=== PATIENT | male | born 1970 | race Caucasian/White ===

== ENCOUNTER 2017-10-27 17:16 | Emergency (ER) | payer MEDICAID, SELFPAY ==
[2017-10-27 17:18] VITALS: BP 144/88; PULSE 95; RESP 18; TEMP 37.1; O2SAT 99; BMI 23.5
--- NOTE | 2017-10-27 17:20 | RAD_ITS ---
STUDY: X-RAY - LEFT HAND REASON FOR EXAM: Male, 47 years old. Smash injury to distal tips of the third and fourth digits. Trigger finger deformity of fifth digit. TECHNIQUE: Three view(s) of the hand. COMPARISON: None. FINDINGS: Bones: There are no acute osseous abnormalities. Joints: There is moderate arthrosis of the radial carpal row and the first carpometacarpal joint. There is a trigger finger deformity of the fifth digit. Soft tissues: There is soft tissue swelling over the distal tip of the third digit. Foreign body: None RAD/Hand Min 3 Views IMPRESSION: Soft tissue swelling. Osteoarthritic changes. No acute osseous abnormality. Electronically Signed: Antolin Cody MD at 17:36 EDT , Service support ,
--- NOTE | 2017-10-27 19:24 | ED.VISSUMM ---
- ER Visit Summary Date of Service: 10/27/17 Chief Complaint: Left hand trauma History of Present Illness: The patient is a 47 M who presents for injury to the left hand that occurred 4 hours ago. Patient tried to catch a falling log from a truck and ended up getting his left hand smashed underneath it. Tetanus is not up-to-date. Patient has chronic trigger fingers on the fourth and fifth fingers of both hands. He is right-handed. He is scheduled for tendon release surgery of both hands 3 days. Physical Examination: Is well-nourished well-developed sitting in bed in no distress. Patient has chronic contractures of the fourth and fifth fingers of the left and right hands. Avulsion of the finger pads on the third and fourth fingers of the left hand. Distal refill, motor and sensation are intact. Average currently controlled. Test Results: [] Emergency Department Course and Treatment: tetanus was updated. X-ray showed no fractures. Patient's third and fourth fingers were digitally blocked with lidocaine. The skin avulsions were cleaned, debrided including dried paper towel and blood clot were removed, and it was noted that the fourth finger had a small laceration with oozing hemorrhage. 1x 6-0 simple interrupted suture was placed to close the oozing laceration and control hemorrhage. The third finger had significant avulsion of the finger pad, with large amount of tissue missing. The remaining finger pad was cleaned, debrided and packed into place with 2 simple interrupted sutures. Hemorrhage control was obtained with minimal pressure. Bacitracin was placed on patient's wounds and bulky sterile dressings were placed. Patient was placed on antibiotics given the dirty nature of the wounds. He is to follow-up with his hand surgeon in 3 days as already scheduled. Return precautions given. Given a prescription for Percocet for pain. He was discharged home. Treatment Plan: [] Disposition: [] Impression: Crush injury and lacerations/avulsions to the third and fourth palmar fingertips, left hand This note was generated with [employer] dictation software. It may contain incorrect words, spelling, and punctuation that were not noted in review of the chart prior to signing ED Disposition - Plan for ED Patient: Disposition: Home or Assisted Living Chief Complaint: Upper Extremity Injury Instructions: ED Crush Injury Finger No Fx, ED Laceration Hand Prescriptions: Oxycodone HCl/Acetaminophen [Percocet 5/325] 1 tab PO Q6H PRN PRN 3 Days #12 tab PRN Reason: Pain Cephalexin [Keflex] 500 mg PO Q6 #20 cap Bacitracin Ointment 1 applic TOPICAL BID #1 tube Referrals: Nemesio Johnson MD [STAFF PHYSICIAN] - Keep [facility] appointment Care Physician,No Primary [Primary Care Provider] - Additional Instructions: You have crush injuries to your third and fourth fingers of your left hand that required suturing. There were no obvious fractures, however given the damage to your fingertips, you have been placed on antibiotics to prevent infection. Please apply antibiotic ointment twice daily to the wounds as well. Keep your appointment with your orthopedic doctor in 3 days for reevaluation. You will need to have the sutures removed, with 1 suture in your fourth finger and 2 sutures in your third finger. Have any concern about your condition, such as high fever, pus from the wounds, red streaking or severe pain, or any other concerns, please come back to emergency department for another evaluation.
[2017-10-27] MEDS: Diphth,Pertuss(Acell),Tet Vac 0.5 ML Vial IM (19:45)
[2017-10-27] MEDS: Acetaminophen 500 MG Tablet PO (19:46)
[2017-10-27] MEDS: oxyCODONE 5 MG Tablet PO ×2 (19:46→21:35)
--- NOTE | 2017-10-27 21:15 | ED.DEP ---
ED Disposition - Plan for ED Patient: Disposition: Home or Assisted Living Chief Complaint: Upper Extremity Injury Instructions: ED Laceration Hand, ED Crush Injury Finger No Fx Prescriptions: Oxycodone HCl/Acetaminophen [Percocet 5/325] 1 tab PO Q6H PRN PRN 3 Days #12 tab PRN Reason: Pain Cephalexin [Keflex] 500 mg PO Q6 #20 cap Bacitracin Ointment 1 applic TOPICAL BID #1 tube Referrals: Care Physician,No Primary [Primary Care Provider] - Nemesio Johnson MD [STAFF PHYSICIAN] - Keep Chilo appointment Additional Instructions: You have crush injuries to your third and fourth fingers of your left hand that required suturing. There were no obvious fractures, however given the damage to your fingertips, you have been placed on antibiotics to prevent infection. Please apply antibiotic ointment twice daily to the wounds as well. Keep your appointment with your orthopedic doctor in 3 days for reevaluation. You will need to have the sutures removed, with 1 suture in your fourth finger and 2 sutures in your third finger. Have any concern about your condition, such as high fever, pus from the wounds, red streaking or severe pain, or any other concerns, please come back to emergency department for another evaluation.
[2017-10-27] MEDS: Cephalexin 250 MG Capsule 500 MG PO (21:35)
[2017-10-27 21:39] VITALS: PULSE 78; PULSE 87; RESP 18; O2SAT 100
== END 2017-10-27 21:40 | disposition home or self-care (01) ==
PROVIDERS: Emergency Provider Emergency Medicine
DX: S61.223A Laceration with foreign body of left middle finger without damage to nail, initial encounter (principal); S61.225A Laceration with foreign body of left ring finger without damage to nail, initial encounter; W20.8XXA Other cause of strike by thrown, projected or falling object, initial encounter; Y93.89 Activity, other specified; Y92.9 Unspecified place or not applicable; M65.342 Trigger finger, left ring finger; M65.341 Trigger finger, right ring finger; M65.352 Trigger finger, left little finger; M65.351 Trigger finger, right little finger
CPT/HCPCS: 12001; 73130; 90715; 99284

== ENCOUNTER 2017-12-22 16:00 | Outpatient (RCR) | payer MEDICAID, SELFPAY ==
--- NOTE | 2017-12-15 16:37 | HP.OTEVAL_ITS ---
Patient's Visit Information TUSHAR ESTEBAN is a 47 year old M, referred to Occupational Therapy by SANJANA NASSAR, with a diagnosis of dupuytren's contracture. Date of Evaluation: 12/15/17 Occupational Therapist: Callie Neely, MELODYR/Kimberli, CHT - Subjective Subjective: Pt arrives to OT for custom orthosis following a right palmar fasciectomy right middle and rign finger 12-04-17. pt states he has been having difficulty with his fingers pulling down for over 10 years. pt states he has trouble getting his hands in his pockets and getting his fingers caught on objects. pt is hopeful sx will allow his fingers to be straight so he can use his pockets and hold or release objects when needed. - Pain right hand 8 - ROM MP: right RF -5/40 right LF +30/15 PIP: right LF -25/35 DIP: right LF -25/30 ROM Comments: pts left hand demo with contracture of LF/RF and thumb and will have sx when his right hand is healed. - Strength Strength Comments: Not tested - Sensation Sensation Comments: denies - Hand/Wrist Evaluation Total Score of Pain & Functional Sections: 89 - Goals Goal:: pt will demo understanding of orthosis use and precautions by end of 1st session. pt will demo understanding to return to clinic for orthosis adj. to increase compliance with protocol. PT will demo understanding of signs of infection by end of 1st session. - Rehabilitation General Assessment: Contracture of palmar fascia- pt S/P palmar fasciectomy right middle and ring fingers 12/04/17. PT attends session for custom orthosis placing fingers together and at 0* extension. Therapist karol. custom orthosis- was unable to get LF PIP in 0* extension. able to get MCP of IF,MF, RF to 0* if ext LF MCP falls into +35 placeing PIP at 25* of flex. Due to pts pain level - therapist will have pt return to cont. to increase pts LF extension to 0 as able with graft. Pt agreeable to this POC- Rehabilitation Potential: Good - Anticipated Interventions Anticipated Interventions: Orthoses, Manual Lymph Drainage, Home Program Other Interventions: education on infection - Visit Plan Frequency: 1x/Week Duration: 4 Weeks General Plan: pt in need of custom orthosis placing right hand based fingers together and at 0 extension- following a right plamar fasciectomy. pt was instructed in orthosis use and precautions- pt also ed. on incision care and sighs of infection. TEXT: Thank you for the opportunity to evaluate your patient. For Medicare and Medicare HMO plans, please review the plan of care and approve it. It will need to be FAXED BACK to us at [phone] for Medicare purposes. Please let me know if there are questions or concerns regarding this plan of care. Physician Signature: Date:
--- NOTE | 2018-04-08 16:00 | HP.OT.NRP ---
HP - Discharge Summary - Patient Information TUSHAR ESTEBAN was seen in my office for initial evaluation on 12/15/17. The following Plan of Care was established for this patient: Initial Frequency: 1x/Week Initial Duration: 4 Weeks - Anticipated Interventions Anticipated Interventions: Orthoses, Manual Lymph Drainage, Home Program Other Interventions: education on infection This patient was last seen in our office 12/22/17. Pertinent comments regarding their Occupational therapy will appear below: PT has not returned following EVAL and due to timelapse in care pt is D/C at this time. At this point I will be discontinuing this patient from occupational therapy. I would be happy to see this patient again in the future if found appropriate by the physician. Thank you! Callie Neely, OTR/L, CHT
== END 2017-12-22 19:00 | disposition home or self-care (01) ==
LOC: OT 16:00
DX: M72.0 Palmar fascial fibromatosis [Dupuytren] (principal)
CPT/HCPCS: 97166; 97760

== ENCOUNTER 2018-02-24 09:00 | Outpatient (RCR) | payer MEDICAID, SELFPAY ==
--- NOTE | 2018-02-17 07:59 | HP.OTEVAL ---
Patient's Visit Information TUSHAR ESTEBAN is a 48 year old M, referred to Occupational Therapy by SANJANA NASSAR, with a diagnosis of Dupuytren's. Date of Evaluation: 02/16/18 Occupational Therapist: Callie Neely, MELODYR/L, CHT - Subjective Subjective: Pt underwent a dupuytren's contracture palmar fascia release January 27, 2018. pt had contracture for 10+ years and he was unable to put gloves on or put his hands in his pocket- pt opted for sx. he's currently happy with results. - Pain left hand 3 Pain Intensity Range: 0, 3 - Objective Objective/Observation: pt demo with open dupuytren's release- wound looks good- minimal drainage- - ROM ROM Comments: left MCP LF -10/20. left MCP RF -10/35 - Strength Strength Comments: NT - Edema PIP: right RF 6.5 left 7.5 - Goals Goal:: pt will demo incrase in left LF PIP ROM to -5/90 to gain ind. with perfroming BADLS and IADLS by d/c Goal:: pt will demo understanding of scar mtg by end of 2nd session to avoid scar adhesions. Goal:: pt will demo ind. donning/doffing of custom orthosis by end of 1st session. pt will demo understanding of orthosis use, care and skin precautions by end of 1st session. - Rehabilitation General Assessment: S/P left dupuytren's contracture open procedure- pt ed. in signs and symptoms of infection wound cleaning. pt was fabricated a custom paddle orthosis to keep palm of hand open- therapist was unable to get full ext. of left LF- pt is to return for weekly cleaning and orthosis adj. to ensure healing and decrease scar adhesions to return pt to PLOF. Rehabilitation Potential: Good - Anticipated Interventions Anticipated Interventions: A/AAROM/PROM, Scar Care, Wound Care, Modalities, Orthoses, Fine Motor Coord/Neo - Visit Plan Frequency: 1x/Week Duration: 4 Weeks TEXT: Thank you for the opportunity to evaluate your patient. For Medicare and Medicare HMO plans, please review the plan of care and approve it. It will need to be FAXED BACK to us at [phone] for Medicare purposes. Please let me know if there are questions or concerns regarding this plan of care. Physician Signature: Date:
--- NOTE | 2018-04-07 13:24 | HP.OT.NRP ---
HP - Discharge Summary - Patient Information TUSHAR ESTEBAN was seen in my office for initial evaluation on 02/16/18. The following Plan of Care was established for this patient: Initial Frequency: 1x/Week Initial Duration: 4 Weeks Plan: cont with POC- closer of wound. orthosis checks. ROM - Anticipated Interventions Anticipated Interventions: A/AAROM/PROM, Scar Care, Wound Care, Modalities, Orthoses, Fine Motor Coord/Neo This patient was last seen in our office 02/24/18. Pertinent comments regarding their Occupational therapy will appear below: Pt was seen for two OT visits. pt has not scheduled any further apts at this time. Due to timelapse from therapy pt is D/c at this time. At this point I will be discontinuing this patient from occupational therapy. I would be happy to see this patient again in the future if found appropriate by the physician. Thank you! Callie Neely, OTR/L, CHT
== END 2018-02-24 19:00 | disposition home or self-care (01) ==
LOC: OT 09:00
DX: M72.0 Palmar fascial fibromatosis [Dupuytren] (principal)
CPT/HCPCS: 97166; 97530; 97760

== ENCOUNTER → 2022-09-19 | Outpatient (CLI) | payer MEDICAID, SELFPAY ==
--- NOTE | 2022-09-19 06:36 | MRI_ITS ---
INDICATION: lower back pain EXAMINATION: MRI - MR Spine Lumbar W/O Contrast TECHNIQUE: Multiplanar and multisequence MR images of the lumbar spine. IV Contrast Dosage and Agent: None. COMPARISON: Lumbar spine radiographs same date. FINDINGS: Heterogenous marrow signal on T1 and T2. No focal lesions are evident. Homogenous low signal on STIR. No fracture. Alignment similar to prior with mild right scoliosis centered at L3. Sagittal alignment remains anatomic. The conus terminates at the level of the mid T12 vertebral body with normal contour and signal. Normal arborization of the cauda equina. At L1-2, mild facet degeneration causes no significant narrowing. At L2-3, mild right and moderate left facet degeneration with small left facet joint effusion causes only mild narrowing. At L3-4, disc bulge with diffuse disc bulge and moderate bilateral facet degeneration causes only mild narrowing. At L4-5, diffuse disc bulge and moderate to severe facet degeneration causes only mild narrowing. Disc abuts but does not displace the traversing left L5 nerve root in the subarticular zone, and both exiting L4 nerve roots in the foramina. At L5-S1, marked bilateral facet degeneration and small disc bulge with underlying vertebral body osteophytes cause only mild narrowing of the spinal canal and foramina. The paraspinal soft tissues are unremarkable. MRI/Spine Lumbar (Routine) IMPRESSION: Mild right scoliosis with multilevel degenerative changes but no evidence of nerve root impingement. This is most prominent in the L4-5 and L5-S1 facets which could cause facet type pain. Heterogenous marrow signal. This most likely represents red marrow reconversion or bony demineralization or other benign etiology but warrants more definitive workup; while less likely, an early infiltrative marrow disorder could appear this way. Suggest hematology workup such as CBC, serum electrophoresis etc. Electronically Signed: Yuniel Pretty MD at 8:03 EST Reading Location ID and State: [address] [place] [address] Tel , Service support ,
== END | disposition home or self-care (01) ==
LOC: MRI 06:35
PROVIDERS: Referring Provider Orthopaedic Surgery; Visit Provider Orthopaedic Surgery
DX: M54.50 Low back pain, unspecified (principal)
CPT/HCPCS: 72148

== ENCOUNTER → 2022-10-02 | Outpatient (CLI) | payer MEDICAID, SELFPAY ==
--- NOTE | 2022-10-02 07:00 | MRI_ITS ---
STUDY: MRI LEFT KNEE REASON FOR EXAM: Male, 52 years old. Pain. Evaluate for meniscal tear. TECHNIQUE: Standardized fat and water weighted pulse sequences were obtained in all 3 orthogonal planes. COMPARISON: Left knee images dated August 08, 2022. FINDINGS: Loss of substance of the body and posterior horn of the medial meniscus with a complex tear of the remnant of the posterior horn (coronal series 8 images 14-23). Some of these findings may be secondary to prior arthroscopy. Marked thinning of the articular cartilage of the medial femorotibial compartment with reactive subchondral bone marrow edema and osteophytes (coronal series 8 images 11-22). Normal medial collateral ligamentous complex (MCL). Normal distal semimembranosus, gracilis and semitendinosus tendons. Normal lateral meniscus. Mild thinning of the articular cartilage of the lateral femorotibial compartment (coronal series 8 images 13-21). Normal lateral femoral condyle and tibial plateau. Normal proximal tibiofibular articulation. Normal lateral collateral (fibular) ligament. Normal popliteus tendon. Normal biceps femoris tendon. Normal anterior cruciate ligament (ACL). Normal posterior cruciate ligament (PCL). Lateral tilt and subluxation of the patella with moderate to marked thinning of the articular cartilage of the patellofemoral compartment (axial series 5 images 17-24). Normal medial and lateral patellar retinaculum. Normal quadriceps tendon. Normal patellar tendon. Fibrosis of Hoffa''s fat pad from prior arthroscopic intervention (sagittal series 6 images 20-24). Deep infrapatellar bursitis (sagittal series 4 image 10). Moderate-sized joint effusion with multiple small plicae and small popliteal cyst (axial series 5 images 11-27). The soft tissues are unremarkable. The otherwise visualized osseous structures are unremarkable. MRI/Lower Ext Joint Only (Routine) IMPRESSION: Loss of substance of the body and posterior horn of the medial meniscus with a complex tear of the posterior horn remnant. Findings most likely secondary to arthroscopy. Marked thinning of the articular cartilage of the medial femorotibial compartment. Mild thinning of the articular cartilage of the lateral femorotibial compartment. Lateral tilt and subluxation of the patella with moderate to marked thinning of the articular cartilage of the patellofemoral compartment. Fibrosis of Hoffa''s fat pad. Deep infrapatellar bursitis. Moderate-sized joint effusion with multiple small plicae. Small popliteal cyst. Electronically Signed: Antolin Cody, at 13:01 EST ,
== END | disposition home or self-care (01) ==
LOC: MRI 10-03 10:54
PROVIDERS: Referring Provider Orthopaedic Surgery Sports Medicine; Visit Provider Orthopaedic Surgery Sports Medicine
DX: M17.12 Unilateral primary osteoarthritis, left knee (principal); M25.562 Pain in left knee; M25.462 Effusion, left knee
CPT/HCPCS: 73721

== ENCOUNTER 2024-05-02 19:49 | Inpatient (IN) | payer MEDICARE, MEDICAID, SELFPAY ==
[2024-05-02] VITALS (22 sets, daily range): BP systolic 114–152; BP diastolic 87–107; PULSE 77–93; RESP 14–26; TEMP 36.1–37.1; O2SAT 96–100; BMI 28.5; BMI 28.6
--- NOTE | 2024-05-02 19:54 | EKG12_ITS ---
Test Reason : DYSRHYTHMIA Blood Pressure : / mmHG Vent. Rate : 103 BPM Atrial Rate : 103 BPM P-R Int : 168 ms QRS Dur : 080 ms QT Int : 348 ms P-R-T Axes : 069 -03 051 degrees QTc Int : 455 ms Sinus tachycardia WITH PACS BORDERLINE Confirmed by Andres Ivory ([id number]), industrial editor ABIEL LUCIANO ([id number]) on 05/04/2024 9:31:58 AM Referred By: Confirmed By:Andres Ivory
--- NOTE | 2024-05-02 19:55 | CT_ITS ---
We are attempting to reach an attending provider to discuss findings. An addendum with communication details will be sent when the communication is complete. EXAM: CT ANGIOGRAPHY HEAD AND NECK WITH INTRAVENOUS CONTRAST CLINICAL INDICATION: Neuro deficit, acute, stroke suspected TECHNIQUE: [place] [facility] [place]/head and neck CT angiography protocol performed with intravenous contrast. This CT exam was performed using one or more of the following dose reduction techniques: automated exposure control, adjustment of the mA and/or kV according to patient size, and/or use of iterative reconstruction technique. MIP reconstructed images were created and reviewed. CONTRAST: IV 100mL [id number] COMPARISON: Noncontrast CT head on the same date. FINDINGS: HEAD: RIGHT ANTERIOR CEREBRAL ARTERY: No significant abnormality. No occlusion or significant stenosis. Anterior communicating artery is present. No aneurysm. RIGHT MIDDLE CEREBRAL ARTERY: No significant abnormality. No occlusion or significant stenosis. No aneurysm. RIGHT POSTERIOR CEREBRAL ARTERY: No significant abnormality. No occlusion or significant stenosis. No aneurysm. RIGHT INTRACRANIAL INTERNAL CAROTID ARTERY: No significant abnormality. No significant stenosis. No dissection or occlusion. RIGHT INTRACRANIAL VERTEBRAL ARTERY: No significant abnormality. No significant stenosis. No dissection or occlusion. LEFT ANTERIOR CEREBRAL ARTERY: No significant abnormality. No occlusion or significant stenosis. No aneurysm. LEFT MIDDLE CEREBRAL ARTERY: No significant abnormality. No occlusion or significant stenosis. No aneurysm. LEFT POSTERIOR CEREBRAL ARTERY: No significant abnormality. No occlusion or significant stenosis. No aneurysm. LEFT INTRACRANIAL INTERNAL CAROTID ARTERY: No significant abnormality. No significant stenosis. No dissection or occlusion. LEFT INTRACRANIAL VERTEBRAL ARTERY: No significant abnormality. No significant stenosis. No dissection or occlusion. BASILAR ARTERY: No significant abnormality. No occlusion or significant stenosis. No aneurysm. OTHER VASCULATURE: No vascular malformation. NECK: RIGHT COMMON CAROTID ARTERY: No significant abnormality. No significant stenosis. No dissection or occlusion. RIGHT EXTRACRANIAL INTERNAL CAROTID ARTERY: No significant abnormality. No significant stenosis. No dissection or occlusion. RIGHT EXTERNAL CAROTID ARTERY: No significant abnormality. No occlusion. RIGHT EXTRACRANIAL VERTEBRAL ARTERY: No significant abnormality. No significant stenosis. No dissection or occlusion. LEFT COMMON CAROTID ARTERY: No significant abnormality. No significant stenosis. No dissection or occlusion. LEFT EXTRACRANIAL INTERNAL CAROTID ARTERY: No significant abnormality. No significant stenosis. No dissection or occlusion. LEFT EXTERNAL CAROTID ARTERY: No significant abnormality. No occlusion. LEFT EXTRACRANIAL VERTEBRAL ARTERY: No significant abnormality. No significant stenosis. No dissection or occlusion. BRACHIOCEPHALIC AND SUBCLAVIAN ARTERIES: Normal as visualized. No occlusion or significant stenosis. LUNG APICES: Normal as visualized. HEAD and NECK: BONES/JOINTS: No significant abnormality. No discrete lytic or blastic abnormalities. SOFT TISSUES: No significant abnormality. CAROTID STENOSIS REFERENCE USING NASCET CRITERIA: % ICA stenosis = (1 - narrowest ICA diameter/diameter of distal cervical ICA) x 100. Mild - <50% stenosis. Moderate - 50-69% stenosis. Severe - 70-94% stenosis. Near occlusion - 95-99% stenosis. Occluded - 100% stenosis. CT/STROKE CTA Head AND Neck W/Con IMPRESSION: Negative CTA carotid and CTA brain. Electronically Signed: Tarik Aviles DO at 20:27 EDT ,
--- NOTE | 2024-05-02 20:02 | CT_ITS ---
EXAM: CT HEAD WITHOUT INTRAVENOUS CONTRAST CLINICAL INDICATION: NEURO DEFICIT TECHNIQUE: Multiple axial images were obtained of the head without intravenous contrast. This CT exam was performed using one or more of the following dose reduction techniques: automated exposure control, adjustment of the mA and/or kV according to patient size, and/or use of iterative reconstruction technique. COMPARISON: 03/21/2011 FINDINGS: BRAIN AND EXTRA-AXIAL SPACES: No significant abnormality. No intra- or extra-axial hemorrhage. No evidence of acute infarct. No intracranial mass or mass effect. There is preservation of the ortiz/white matter interface. Ventricles are appropriate for age. Basal cisterns are patent. BONES/JOINTS: No significant abnormality. No discrete lytic or blastic abnormalities. SINUSES: No significant findings. MASTOID AIR CELLS: No significant effusion. ORBITS: No acute findings. CT/STROKE Brain/Head without Cont IMPRESSION: No evidence of acute intracranial pathology. Specifically, no infarct or hemorrhage. ASPECTS: 10. N.B. : The above Results were Read Back by Tarik Aviles DO to Salvatore Hamm MD, and understanding confirmed on 05/02/2024 20:15:32 (ET). Electronically Signed: Tarik Aviles DO at 20:14 EDT ,
[2024-05-02 20:05] LABS: Absolute Lymphocyte Count 1.05 X10^3/uL (0.83-4.51); Absolute Neutrophil Count 11.6 X10^3/uL (2.0-7.7); Basophil# 0.05 X10^3/uL; Basophil% 0.4 % (0-1); Eosinophil# 0.16 X10^3/uL; Eosinophils% 1.2 % (0-5); Hematocrit 37.3 % (40-54); Hemoglobin 12.4 g/dL (13.0-16.5); Lymphocyte # 1.05 X10^3/ul (0.83-4.51); Lymphocyte % 7.7 % (19-41); Mean Corp Hgb Conc 33.2 g/dL (32-36); Mean Corpuscular Hgb 31.7 pg (27.0-32.0); Mean Corpuscular Volume 95.4 fL (80-94); Mean Platelet Vol. 9.4 fl (6.2-12.0); Monocyte# 0.83 X10^3/uL; Monocyte% 6.1 % (0-10); NRBC Flagged by Analyzer 0 % (0-5); Neutrophil # 11.57 X10^3/uL (2.7-7.7); Neutrophil % 84.3 % (47-70); Platelet Count 196 K/mm3 (150-450); RBC Distribution Width CV 12.6 % (11.6-14.6); RBC Distribution Width SD 43.9 fl (35.1-43.9); Red Blood Count 3.91 M/mm3 (4.6-6.2); White Blood Count 13.7 K/mm3 (4.4-11.0)
[2024-05-02 20:17] LABS: International Normalized Ratio 1.2; Prothrombin Time (Protime)PT. 14.7 SECONDS (11.7-14.9)
[2024-05-02 20:18] LABS: Partial Thromboplast Time 25.5 Seconds (24.1-36.2)
--- NOTE | 2024-05-02 20:22 | ED.VIS.STROK ---
HPI History of Present Illness Chief Complaint: Stroke Alert Detail of Chief Complaint: Cannot see on the left side Informant: patient and EMS Onset/Context/Timing Onset: Today (Onset 1809 while driving.) Associated Symptoms Associated Symptoms: Negative for Headache, Nausea or Vomiting Narrative Narrative: Patient is a 54-year-old male. He has history of orthopedic issues. Apparently he was driving with his friend. To socket puller because he could not see at 1810. He then began to work under the car. There was a period where he was not speaking. EMS was contacted. Patient is able to speak. He cannot see anything on his left side. Prior similar symptoms: No Recent Illness/Hospitalization: No PFSH PFSH Medical History (Updated 05/02/24 @ 21:[address] Irina Couch MD) History of venous thromboembolism Tobacco use Osteoarthritis of left knee Radiculopathy due to disorder of intervertebral disc of lumbar spine Lower back pain Home Medications ?Medication ?Instructions ?Recorded ?Last Taken ?Type acetaminophen 650 mg 650 mg PO Q12H 08/08/22 Unknown History tablet,extended release (Tylenol 8 Hour) cholecalciferol (vitamin D3) 50 50 mcg PO DAILY 09/19/22 Unknown History mcg (2,000 unit) capsule apixaban 5 mg tablet (Eliquis) 5 mg PO BID PE 05/02/24 Unknown History Allergy/AdvReac Type Severity Reaction Status Date / Time No Known Allergies Allergy Verified 05/02/24 19:56 Family History (Updated 05/02/24 @ 21:[address] Irina Couch MD) Mother CVA (cerebral vascular accident) Father No problems noted. Surgical History History of knee surgery History of hernia surgery Social History (Updated 05/02/24 @ 21:[address] Irina Couch MD) household members: none Smoking Status: Current every day smoker tobacco type: cigarettes Smoking packs per day: 0.5 Smoking cigarettes per day: 10.0 alcohol intake: former details: Former EtOH abuse (> 20 beers daily), sober ~ 1 year. substance use type: marijuana ROS ROS ED Constitutional Constitutional ED: Denies sweats or weakness Eyes Eyes: Reports blurry vision bilateral and change in vision bilateral; Denies diplopia ENT ENT ED: Denies sore throat Cardiovascular Cardiovascular: Denies chest pain or palpitations Respiratory/Chest Respiratory/Chest: Denies cough, dyspnea or dyspnea on exertion Gastrointestinal Gastrointestinal: Denies abdominal pain, nausea or vomiting Genitourinary Genitourinary ED: Denies dysuria, hematuria or urinary frequency Musculoskeletal Musculoskeletal: Denies arthralgias, back pain, myalgias or neck pain Integumentary Denies rash Neurologic Neurologic: Denies headache(s), paresthesias or weakness Hematologic/Lymphatic Hematologic/Lymphatic: Denies easy bleeding or easy bruising EXAM Physical Exam Const Vital Signs: 05/02/24 19:54 05/02/24 19:54 05/02/24 19:54 Temperature 98.2 F Temperature Source Oral Pulse Rate 87 87 87 Respiratory Rate 17 16 16 Blood Pressure 145/107 H 145/107 H 145/107 H Blood Pressure Mean 119 119 119 Pulse Ox 99 99 99 Oxygen Delivery Method Room Air Room Air Room Air 05/02/24 20:00 05/02/24 20:15 05/02/24 20:25 Temperature Temperature Source Pulse Rate 85 81 Respiratory Rate 21 H 18 Blood Pressure 141/97 H 152/98 H Blood Pressure Mean 111 116 Pulse Ox 98 99 Oxygen Delivery Method Room Air Room Air Room Air 05/02/24 20:30 05/02/24 20:30 Temperature Temperature Source Pulse Rate 77 Respiratory Rate 17 Blood Pressure 141/99 H 143/97 H Blood Pressure Mean 112 Pulse Ox 99 Oxygen Delivery Method Room Air Positive well nourished and well developed General Appearance ED: well developed and NAD HEENT Reports moist mucous membranes atraumatic Eyes PERRL and EOMs intact bilaterally Eyes Narrative: Homonymous hemianopsia left General Eye ED: Yes scleral icterus; Negative for pale conjunctiva Neck no lymphadenopathy, supple and no JVD Neck Narrative: No carotid bruits. Trachea midline. No dysphonia Chest Wall inspection of chest normal and palpation of chest normal Resp normal respiratory effort and clear to auscultation bilaterally Cardio Rate: regular rate Rhythm: regular rhythm Heart Sounds: S1 normal and S2 normal GI normal to inspection, nondistended, normoactive bowel sounds, soft to palpation, non-tender and non-distended Back/Spine no CVA tenderness Extremity normal to inspection General Extremety ED: Negative for deformity or edema General Extremity: Negative for deformity or edema Neuro oriented x3, CN's II-XII intact bilaterally and no sensory deficits noted Huan Coma Scale: document GCS findings Spontaneous Obeys Commands Oriented 15 Speech: speech normal Motor Exam: strength 5/5 throughout Psych mental status grossly normal Skin no wounds Lesions: no lesions Rashes: no rashes NIHSS NIHSS Initial: 1a Level of Consciousness: 0 1b LOC Questions (Score 2 if aphasic/stupor): 0 1c LOC Commands (Only score 1st attempt): 0 2 Best Gaze (If aphasic, use reflexive mvmts.): 0 3 Visual: 2 4 Facial Palsy: 0 5 Motor Arm Right (UN = amputation/fusion): 0 5 Motor Arm Left: 0 6 Motor Leg Right: 0 6 Motor Leg Left: 0 7 Limb ataxia (Only + if out of proportion): 0 8 Sensory (Aphasia/stupor=0 or 1, coma=2): 0 9 Best Language: 0 10 Dysarthria (mute, coma=2, intubated=UN): 0 11 Extinction and Inattention (only scored if +): 0 Total Score: 2 MDM MDM MDM Narrative Medical decision making narrative: Patient has a left homonymous hemianopsia. Stroke team was called. Patient was taken to radiology suite. I received a call for radiologist the CT of the head without contrast reveals no abnormality. Spoke with the neurologist at [facility]. Will order tenecteplase. He is completing his eval. Lab Data Attestation: I reviewed the patient's lab results. Lab results narrative: CBC is remarkable for elevated white count at 13.7. Coags normal. Labs: Laboratory Results - last 24 hr 05/02/24 05/02/24 05/02/24 19:55 20:20 20:36 WBC 13.7 H RBC 3.91 L Hgb 12.4 L Hct 37.3 L MCV 95.4 H MCH 31.7 MCHC 33.2 RDW Std Deviation 43.9 RDW Coeff of Roxana 12.6 Plt Count 196 MPV 9.4 Immature Gran % (Auto) 0.300 Neut % (Auto) 84.3 H Lymph % (Auto) 7.7 L [place] % (Auto) 6.1 Eos % (Auto) 1.2 Baso % (Auto) 0.4 Absolute Neuts (auto) 11.6 H Absolute Lymphs (auto) 1.05 Nucleated RBC % 0 PT 14.7 INR 1.2 APTT 25.5 Sodium 139 Potassium 4.3 Chloride 111 H Carbon Dioxide 24.0 Anion Gap 4 L BUN 15 Creatinine 1.02 Estim Creat Clear Calc 83.11 Est GFR (MDRD) Af Amer 97 Est GFR (MDRD) Non-Af 80 BUN/Creatinine Ratio 14.7 Glucose 101 Calcium 8.7 Phosphorus 2.0 L Magnesium 2.0 Troponin I High Sens 1342 H* Urine Opiates Screen NEGATIVE Urine Methadone Screen NEGATIVE Ur Barbiturates Screen NEGATIVE Ur Phencyclidine Scrn NEGATIVE Ur Amphetamines Screen POSITIVE H MDMA (Ecstasy) Screen POSITIVE H U Benzodiazepines Scrn NEGATIVE Urine Cocaine Screen NEGATIVE U Cannabinoids Screen NEGATIVE Ur Drug Screen Comment POC Glucose 83 Troponin is elevated 1342. Patient denies chest pain or shortness of breath. Talk screen was ordered. Case was discussed with Dr. Couch. Patient be admitted to ICU. Radiography Diagnostic Testing: Clinical Impression(s) from Imaging Studies Head/Neck CTA 05/02/24 19:55 IMPRESSION: Negative CTA carotid and CTA brain. Electronically Signed: Tarik Aviles DO at 20:27 EDT , ADDENDUM: 05/02/242034 IMPRESSION: Negative CTA carotid and CTA brain. N.B. : The above Results were Read Back by Tarik Aviles DO to Salvatore Hamm MD, and understanding confirmed on 05/02/2024 20:28:06 (ET). Electronically Signed: Tarik Aviles DO at 20:27 EDT , Brain CT 05/02/24 20:02 IMPRESSION: No evidence of acute intracranial pathology. Specifically, no infarct or hemorrhage. ASPECTS: 10. N.B. : The above Results were Read Back by Tarik Aviles DO to Salvatore Hamm MD, and understanding confirmed on 05/02/2024 20:15:32 (ET). Electronically Signed: Tarik Aviles DO at 20:14 EDT , ADDENDUM: 05/02/242021 IMPRESSION: No evidence of acute intracranial pathology. Specifically, no infarct or hemorrhage. ASPECTS: 10. N.B. : The above Results were Read Back by Tarik Aviles DO to Salvatore Hamm MD, and understanding confirmed on 05/02/2024 20:15:32 (ET). Electronically Signed: Tarik Aviles DO at 20:14 EDT , I received a call from the radiologist. He sets the CTA is negative. 2027. EKG Initial EKG: Attestation: I personally reviewed and interpreted this EKG as follows: Interpretation: Sinus Tachycardia (Rate is 103. VA intervals 108 ms. Cures duration 80 ms. QT duration 3 and 48 ms. [place] is normal. Computer is reading possible inferior infarct. I am in disagreement.) Management Discussion w/another healthcare provider: Hospitalist, Manufacturer Representative ([facility] neurologist agrees with administration of tenecteplase) and Radiologist (Radiologist read regarding the read for the unenhanced scan of the head and the CTA of the head and neck) Treatment and Re-Evaluation Narrative: By the time the hospitalist saw patient his vision had returned to normal. Critical Care Time Critical Care Time: Yes Critical care time (excluding procedures): 30-74 minutes (32), Including time spent: (History, physical, documentation, discussion with radiologist, [facility] neurologist and pharmacist to expedite the mixing and delivery of tenecteplase discussion with sister who informed us that he did have a PE and has not taken anticoagulant for 2 to 3 months.), Discussing w/Patient &/or Family/Medical Aides Teacher, Discussing w/Consultants and Arranging Admission or Transfer Discharge Plan Dx/Rx/DC Orders Clinical Impression: Left homonymous hemianopsia, Elevated blood-pressure reading without diagnosis of hypertension Disposition Disposition: Acute Care Hospital [facility] Discharge Date/Time: 05/02/24 21:38
[2024-05-02] MEDS: TENECTEPLASE 2966.4 MG IV (20:30)
[2024-05-02] MEDS: 0.9% Saline Lock 10 ML Syringe IV ×2 (20:32→20:33)
[2024-05-02] MEDS: 0.9% Normal Saline (1000mL) 1,000 ML 100 ML IV (20:33)
[2024-05-02 20:40] LABS: Anion Gap 4 (5-15); BUN 15 mg/dL (7-18); BUN/Creat Ratio 14.7 RATIO (10-20); Calcium,Total 8.7 mg/dL (8.5-10.1); Chloride 111 mmol/L (98-107); Creatinine, Serum 1.02 mg/dL (0.70-1.30); EST Glomerular Filtration Rate 80 mL/min (>60); Est Glom Filt Rate - Afr Amer 97 mL/min (>60); Estimated Creatinine Clearance 83.11 ml/min; Glucose 101 mg/dL (74-106); Potassium 4.3 mmol/L (3.5-5.1); Sodium Level 139 mmol/L (136-145); Troponin-I HS 1342 pg/mL (3.0-78.0)
[2024-05-02 20:41] LABS: Bedside Glucose 83 mg/dL (74-106)
--- NOTE | 2024-05-02 20:41 | PCM.HP.STD ---
HPI - General General Date of Admission: 05/02/24 Date of Service: 05/02/24 Chief Complaint: Left sided vision loss, slurred speech, confusion. HPI Narrative The patient is a 54 y/o M w/ PMHx: Former EtOH abuse (~ 20 beers daily, sober x 1 year), Chronic cannabis use, Hx VTE (PE, off anticoagulation x 2-3 months), Tobacco use who presents to the [facility] ED on 05/02/24 with history of onset left-sided visual defects as well as aphasia and dysarthria with slurred garbled speech, confused reportedly starting at approximately 1810 while initially driving with a friend however despite this he asked his friend to cable puller following which began to work on the underside of the car with following this lengthy episode of verbal nonresponsiveness for approximately 20 minutes prompting eventual EMS call and transition to the hospital. Patient reports inability to see anything on his left side. Initial NIH score notable for confusion, partial gaze palsy, partial hemianopia with limb ataxia as well as mild to moderate aphasia, mild to moderate dysarthria scoring 7 initially. Repeat NIH stroke score improved with visual deficits only rating 2 with NIH stroke scale 2. Given this stroke team was alerted and [facility] teleneurology was involved with recommendation for tenecteplase initiation. Workup in the ED included heart rate 87, BP 145/107, respiratory rate 17, 99% on room air, CBC with WC 13.7, human 12.4, MCV 95.4, platelet 196 with left shift, coag unremarkable, BMP with chloride 111 otherwise unremarkable, troponin initial 1342, CT of the brain with no acute intracranial pathology, CTA head and neck unremarkable, EKG with sinus tachycardia with no acute evidence of ischemia w/ nonspecific changes inferiorly. In the ED patient initiated on tenecteplase regimen with as needed agents available per stroke protocol as well as maintenance IV fluids. Hospitalist evaluation in the ED with NIHSS 0, resolved vision deficits. [facility] Medical History (Updated 05/02/24 @ 21:[address] Irina Couch MD) History of venous thromboembolism Tobacco use Osteoarthritis of left knee Radiculopathy due to disorder of intervertebral disc of lumbar spine Lower back pain Home Medications ?Medication ?Instructions ?Recorded ?Last Taken ?Type acetaminophen 650 mg 650 mg PO Q12H 08/08/22 Unknown History tablet,extended release (Tylenol 8 Hour) cholecalciferol (vitamin D3) 50 50 mcg PO DAILY 09/19/22 Unknown History mcg (2,000 unit) capsule apixaban 5 mg tablet (Eliquis) 5 mg PO BID PE 05/02/24 Unknown History Allergy/AdvReac Type Severity Reaction Status Date / Time No Known Allergies Allergy Verified 05/02/24 19:56 Family History (Updated 05/02/24 @ 21:[address] Irina Couch MD) Mother CVA (cerebral vascular accident) Father No problems noted. Surgical History History of knee surgery History of hernia surgery Social History (Updated 05/02/24 @ 21:[address] Irina Couch MD) household members: none Smoking Status: Current every day smoker tobacco type: cigarettes Smoking packs per day: 0.5 Smoking cigarettes per day: 10.0 alcohol intake: former details: Former EtOH abuse (> 20 beers daily), sober ~ 1 year. substance use type: marijuana ROS ROS Narrative Admission Review of Systems: CONSTITUTIONAL: No weight loss, fever, chills, + weakness or fatigue. HEENT: + Sudden onset left-sided visual loss, aphasia, dysarthria. Eyes: No visual loss, blurred vision, double vision or yellow sclerae. Ears, Nose, Throat: No hearing loss, sneezing, congestion, runny nose or sore throat. SKIN: No rash or itching, lesions, wounds. CARDIOVASCULAR: No chest pain, chest pressure or chest discomfort, palpitations, edema, orthopnea, syncopal events. RESPIRATORY: No shortness of breath, cough or sputum, wheezing, hemoptysis. GASTROINTESTINAL: No anorexia, nausea, vomiting or diarrhea, abdominal pain, melena, BRBPR. GENITOURINARY: No dysuria, frequency, urgency or retention. NEUROLOGICAL: + Sudden onset visual loss left-sided, aphasia and dysarthria. No headache, dizziness, syncope, paralysis, numbness or tingling in the extremities, focal weakness, change in bowel or bladder control, seizure. MUSCULOSKELETAL: No muscle, back pain, joint pain or stiffness. HEMATOLOGIC: + Chronic anemia. No reported easy bleeding/bruising. LYMPHATICS: No enlarged nodes. No history of splenectomy. PSYCHIATRIC: No history of depression or anxiety. ENDOCRINOLOGIC: No reports of sweating, cold or heat intolerance. No polyuria or polydipsia. ALLERGIES: No history of asthma, hives, eczema or rhinitis. Vital Signs Vital Signs Vital Signs: 05/02/24 19:54 05/02/24 19:54 05/02/24 20:25 Pulse Rate 87 87 Respiratory Rate 17 16 Blood Pressure 145/107 H 145/107 H Blood Pressure Mean 119 119 Pulse Ox 99 99 Oxygen Delivery Method Room Air Room Air Room Air 05/02/24 20:30 Pulse Rate Respiratory Rate Blood Pressure 141/99 H Blood Pressure Mean Pulse Ox Oxygen Delivery Method Weight Weight: 181 lb 14.102 oz Body Mass Index (BMI) 28.5 Physical Exam Narrative Physical Examination: General: Awake, alert, oriented x 3 and cooperative, seated upright in the ED bed, fatigued but notes feeling improved and currently visual field deficits have resolved as well as his dysarthria and aphasia. Skin: Normal color, normal turgor, no icterus, no cyanosis. HEENT: AT/NC, EOMI, PERRLA, MMM, all davison of vision intact currently, no carotid bruits or JVD noted. Lungs: CTA bilaterally, moderate effort, mild decrease BL bases, occasional end expiratory wheeze but scant, no rales or rhonchi. Heart: Regular rate and rhythm; no gallop, rub audible. Abdomen: Soft, NTTP, ND, normal BS, no discerned HSM. Extremities: No cyanosis, clubbing, or edema. Neurological: Patient awake, alert, oriented as noted, cognitive function intact; pupils equally reactive to light and accommodation, cranial nerves grossly normal, previous left-sided vision deficits completely resolved with intact davison of vision, moving all 4 extremities, no focal deficits, strength preserved, finger-nose and [id number] appropriate, equivocal Babinski, sensation intact, resolved previous noted dysarthria and aphasia. Psychiatric: Affect appears fatigued otherwise normal, no acute evidence of depressive or anxiety feelings. Results Lab / Micro Data 05/02/24 19:55 05/02/24 19:55 Labs: Laboratory Results - last 24 hr 05/02/24 19:55: WBC 13.7 H, RBC 3.91 L, Hgb 12.4 L, Hct 37.3 L, MCV 95.4 H, MCH 31.7, MCHC 33.2, RDW Std Deviation 43.9, RDW Coeff of Roxana 12.6, Plt Count 196, MPV 9.4, Immature Gran % (Auto) 0.300, Neut % (Auto) 84.3 H, Lymph % (Auto) 7.7 L, [place] % (Auto) 6.1, Eos % (Auto) 1.2, Baso % (Auto) 0.4, Absolute Neuts (auto) 11.6 H, Absolute Lymphs (auto) 1.05, Nucleated RBC % 0, PT 14.7, INR 1.2, APTT 25.5, Sodium 139, Potassium 4.3, Chloride 111 H, Carbon Dioxide 24.0, Anion Gap 4 L, BUN 15, Creatinine 1.02, Estim Creat Clear Calc 83.11, Est GFR (MDRD) Af Amer 97, Est GFR (MDRD) Non-Af 80, BUN/Creatinine Ratio 14.7, Glucose 101, Calcium 8.7, Troponin I High Sens 1342 H* Imaging Radiology Impression Head/Neck CTA 05/02/24 19:55 IMPRESSION: Negative CTA carotid and CTA brain. Electronically Signed: Tarik Aviles DO at 20:27 EDT , ADDENDUM: 05/02/242034 IMPRESSION: Negative CTA carotid and CTA brain. N.B. : The above Results were Read Back by Tarik Aviles DO to Salvatore Hamm MD, and understanding confirmed on 05/02/2024 20:28:06 (ET). Electronically Signed: Tarik Aviles DO at 20:27 EDT , Brain CT 05/02/24 20:02 IMPRESSION: No evidence of acute intracranial pathology. Specifically, no infarct or hemorrhage. ASPECTS: 10. N.B. : The above Results were Read Back by Tarik Aviles DO to Salvatore Hamm MD, and understanding confirmed on 05/02/2024 20:15:32 (ET). Electronically Signed: Tarik Aviles DO at 20:14 EDT , ADDENDUM: 05/02/242021 IMPRESSION: No evidence of acute intracranial pathology. Specifically, no infarct or hemorrhage. ASPECTS: 10. N.B. : The above Results were Read Back by Tarik Aviles DO to Salvatore Hamm MD, and understanding confirmed on 05/02/2024 20:15:32 (ET). Electronically Signed: Tarik Aviles DO at 20:14 EDT , Assessment & Plan Assessment/Plan (1) Left homonymous hemianopsia: PLAN: Plan The patient is a 54 y/o M w/ PMHx: Former EtOH abuse (~ 20 beers daily, sober x 1 year), Chronic cannabis use, Hx VTE (PE, off anticoagulation x 2-3 months), Tobacco use who presents to the [facility] ED on 05/02/24 with history of onset left-sided visual defects as well as aphasia and dysarthria with slurred garbled speech, confused reportedly starting at approximately 1810 while initially driving with a friend however despite this he asked his friend to cable puller following which began to work on the underside of the car with following this lengthy episode of verbal nonresponsiveness for approximately 20 minutes prompting eventual EMS call and transition to the hospital. #1. Left-sided visual field defects/gaze palsy partially, left homonymous hemianopsia, limb ataxia, moderate aphasia, moderate dysarthria concerning for CVA: Status post initiation of tenecteplase in the ED, Will admit to ICU per protocol, will plan repeat CT head in 24 hours to assure no intracranial bleeding and following this will immediately initiate antiplatelet therapies if appropriate, will obtain MRI Brain, will obtain ECHO with bubble study, PT/OT/Speech/Nutrition evaluation per protocol. Will allow permissive HTN with as needed agents given tenecteplase administration, again will start antiplatelet therapy once assure repeat CT head with no acute intracranial bleeding, initiate high-dose statin w/ AM FLP, fall precautions. Mag, TSH, HgbA1c requested. UDS requested. Maintain on fall and aspiration precautions. Continue neurology consultation. Will consult embroidery cutter per protocol. #2. Elevated Creatinine, Asymptomatic complicated by #1, potentially demand especially given #1 but not certain: EKG in ED w/ with sinus tachycardia with no acute evidence of ischemia w/ nonspecific changes inferiorly, CXR pending upon request evaluation of patient, Trop elevated, initial 1342. Will maintain on a monitored bed, continue serial cardiac enzymes and EKGs. Obtain magnesium level upon admission. Given tenecteplase usage deferring heparin drip at this time as well as antiplatelet therapy. Once CT of the head is obtained and no evidence of intracranial bleeding would immediately initiate aspirin therapy. Initiating high-dose statin therapy. FLP in AM. ECHO requested. Cardiology consulted. #3. Elevated BP without hypertensive diagnosis: No noted history and not on any medication, given presentation as noted we will continue permissive hypertension with as needed agents especially given tenecteplase usage. #4. Mildly macrocytic anemia, unclear chronicity: Admission CBC with hemoglobin 12.4, MCV 95.4, will obtain iron panel, ferritin, folic acid and vitamin B12 to be cautious, repeat CBC in AM. #5. History of VTE: Noted PE, DVT, not currently chronically anticoagulated, has been off therapy for 2 to 3 months, denies any provoking factors for onset of DVT and PE, given elevated troponin may need to obtain CTPA once 24 hours out from initial CTA head and neck but given unable to obtain at this time will obtain duplex ultrasound lower extremities requested to be cautious especially given elevated troponin. In addition at this point may potentially need to consider hypercoagulable panel but we cannot draw any more labs at this point because of the fact that the patient had tenecteplase so this will need to be obtained at a later time. #6. Tobacco Abuse: Encouraged cessation, inpatient consultation per RT, NR if desired. #7. Chronic back pain with radiculopathy, osteoarthritic pain: Patient with primarily orthopedic issues/discomforts, maintain on fall precautions, PT/OT/case management consult for discharge planning, as needed Tylenol. #8. Former alcohol abuse: Notes sober x 1 year approximately, previous to this drink greater than 20 beers daily, magnesium and phosphorus levels requested, encourage continued sober status. As noted above assessments for macrocytic anemia. #9. DVT prophylaxis: SCDs, defer chemoprophylaxis given tenecteplase usage. #10. CODE status: Patient HCPOA and living will are not in place but he notes his sister Romina would be his medical decision-maker if necessary. Discussed CODE status at length including difference between FULL code, DNR-CCA and DNR-CC status. Following discussions about the differences in these status, requested Full Code status. Advanced Care Planning Face to Face Time: 16 minutes. Charges/Coding Visit Charges Inpatient E&M: 94726 Init Hosp L3 Procedures Hospitalists Procedures: 53817 Advncd Care Plan 30 Min
--- NOTE | 2024-05-02 20:50 | RAD_ITS ---
EXAM: XR CHEST, 1 VIEW CLINICAL INDICATION: Neuro deficit, acute, stroke suspected TECHNIQUE: Frontal view of the chest. COMPARISON: CT head thoracic spine, 03/21/2011 FINDINGS: LUNGS AND PLEURAL SPACES: No significant abnormality. No consolidation or edema. No pneumothorax. No effusion. HEART: No significant abnormality. Cardiac silhouette not enlarged. MEDIASTINUM: Central airways and mediastinal contour are unremarkable. BONES/JOINTS: Degenerative changes in the spine. No acute fracture. SOFT TISSUES: No significant abnormality. RAD/Chest 1 View IMPRESSION: No acute findings in the chest. Electronically Signed: Tarik Aviles DO at 21:05 EDT ,
--- NOTE | 2024-05-02 20:53 | VDLE_ITS ---
Reason For Study: Bilateral leg guillermina RIGHT LEFT GSV is normal. CFV is compressible, spontaneous, phasic, CFV is compressible, spontaneous, phasic, competent, and demonstrates normal competent and demonstrates normal augmentation. augmentation. FV is compressible, spontaneous, phasic, FV is compressible, spontaneous, phasic, competent and demonstrates normal competent and demonstrates normal augmentation. augmentation. POP V is compressible, spontaneous, phasic, Acute deep vein thrombosis is noted in the competent and demonstrates normal right PopV, T/P Trunk, PTV, PeroV and augmentation. GastrocV. It is NONCOMPRESSIBLE and dilated. T/P Trunk is compressible. Procedure PTV is compressible. This is a venous duplex using B-mode, color LT PerV is compressible. flow and spectral Doppler. Acute deep vein thrombosis is noted in the Exam performed portable in ICU/CCU. left GastrocV. It is NONCMPRESSIBLE and A preliminary report was called and/or faxed dilated. to LOCAL TELEPHONE OPERATOR. Acute superficial vein thrombosis is noted in the left GSV prox-distal thigh and SSV. It is NONCOMPRESSIBLE and dilated. VL/Venous Duplex US - Cole Extrem Interpretation Summary Acute deep vein thrombosis is noted in the right popliteal vein, tibioperoneal trunk vein, posterior tibial vein, peroneal vein, gastrocnemius vein. Acute deep vein thrombosis is noted in the left gastrocnemius vein. Acute superficial vein thrombosis is noted in the left great saphenous vein. Ordering Physician: Irina Couch Referring Physician: Leda Alcantara Performed By: Romina Ron RVT
[2024-05-02 21:17] LABS: Amphetamine Urine VISTA POSITIVE (<1000 ng/mL); Barbiturate Urine VISTA NEGATIVE (< 200 ng/mL); Benzodiazepine Urine VISTA NEGATIVE (< 200 ng/mL); Cocaine Urine VISTA NEGATIVE (< 300 ng/mL); Ecstacy Urine VISTA POSITIVE (< 500 ng/mL); Methadone Urine VISTA NEGATIVE (< 300 ng/mL); PCP Urine VISTA NEGATIVE (< 25 ng/mL); THC Urine VISTA NEGATIVE (< 50 ng/mL); Vista UDS pH Range 4
--- NOTE | 2024-05-02 21:20 | ED.RN ---
ATTEMPTED TO CALL REPORT TO ICU, RECEIVING NURSE UNABLE TO ANSWER PHONE AT THIS TIME.
--- NOTE | 2024-05-02 21:27 | ED.RN ---
2124: I SPOKE W/ PT. SISTER GIAN GARCIA PER HIS REQUEST. SHE WAS GIVEN A STATUS UPDATE.
--- NOTE | 2024-05-02 21:33 | ED.RN ---
212: REPORT CALLED TO ICU NURSE ASHWIN, NO FURTHER QUESTIONS BY THE RECEIVING NURSE AT THIS TIME.
--- NOTE | 2024-05-02 22:04 | ECHOD_ITS ---
Reason For Study: TIA/CVA Procedure This was a 2D Doppler, Color Flow transthoracic echocardiogram. Exam performed portable in ICU/CCU. Left Ventricle Normal LV size. Left ventricular systolic function is normal. The left ventricular ejection fraction is 60 %. Stage 1 diastolic dysfunction. No regional wall motion abnormalities noted. Right Ventricle Normal RV size. Normal systolic function. Atria Normal left atrium. Normal right atrium. Bubble contrast study negative for right to left interatrial shunt. Tricuspid Valve Normal tricuspid valve. Mild tricuspid valve insufficiency. Aortic Valve The aortic valve is not well visualized in the short axis view. Pulmonic Valve Normal pulmonic valve. Great Vessels Normal aortic root. The pulmonary artery is normal size. Normal inferior vena cava. Pericardium/Pleural No pericardial effusion. Medication Performed a rapid injection of agitated mix of 9 cc saline and 1cc air to assess for atrial septal defect. MMode/2D Measurements & Calculations LVIDd: 5.0 cm IVSd: 1.3 cm LVOT diam: 2.1 cm LVIDs: 3.1 cm LVPWd: 1.1 cm LVOT area: 3.5 cm2 RVDd: 3.4 cm FS: 38.4 % asc Aorta Diam: 3.2 cm LAV(MOD-bp): 44.0 ml LVAd ap4: 27.6 cm2 LAV(MOD-bp) Indexed: 22.6 ml/m2 LVLd ap4: 7.8 cm LAV(MOD-sp2): 42.0 ml EDV(MOD-sp4): 80.6 ml LAV(MOD-sp4): 43.2 ml EDV(sp4-el): 83.4 ml LVAs ap4: 15.2 cm2 LVLs ap4: 5.8 cm ESV(MOD-sp4): 33.0 ml ESV(sp4-el): 33.4 ml EF(MOD-sp4): 59.1 % EF(sp4-el): 60.0 % LVAd ap2: 30.9 cm2 SV(MOD-sp4): 47.6 ml SV(MOD-sp2): 57.1 ml LVLd ap2: 8.1 cm EDV(MOD-sp2): 97.0 ml EDV(sp2-el): 100.1 ml LVAs ap2: 17.7 cm2 LVLs ap2: 6.5 cm ESV(MOD-sp2): 39.9 ml ESV(sp2-el): 40.5 ml EF(MOD-sp2): 58.9 % SV(sp4-el): 50.0 ml Ao sinus diam: 2.[address] Junction: 2.3 cm LA dimension(2D): 3.4 cm LA A4 area: 17.8 cm2 RA A4 area: 14.8 cm2 Time Measurements MV dec time: 0.19 sec Doppler Measurements & Calculations MV E max justo: 81.7 cm/sec Lat Peak E' Justo: 9.5 cm/sec Med Peak E' Justo: 7.8 cm/sec MV A max justo: 89.3 cm/sec E/E' lat: 8.6 E/E' med: 10.4 MV E/A: 0.91 MV dec slope: 427.8 cm/sec2 Ao V2 max: 136.0 cm/sec LV V1 max: 116.7 cm/sec Ao max P.4 mmHg LV V1 max P.5 mmHg Ao V2 mean: 88.7 cm/sec LV V1 mean P.9 mmHg Ao mean P.7 mmHg LV V1 mean: 80.0 cm/sec Ao V2 VTI: 25.6 cm LV V1 VTI: 22.1 cm AV (velocity ratio): 0.86 SCAR(I,D): 3.0 cm2 SCAR(V,D): 3.0 cm2 SV(LVOT): 76.7 ml PA V2 max: 99.5 cm/sec PI end-d justo: 79.8 cm/sec PA max PG (full): 1.8 mmHg TR max justo: 194.3 cm/sec TR max P.1 mmHg ECHO/Echo Complete Interpretation Summary Normal LV size. Left ventricular systolic function is normal. The left ventricular ejection fraction is 60 %. Bubble contrast study negative for right to left interatrial shunt. Stage 1 diastolic dysfunction. Ordering Physician: Irina Couch Performed By: Renu Braxton RDCS and Student
--- NOTE | 2024-05-02 22:05 | CT_ITS ---
STUDY: CT BRAIN WITHOUT CONTRAST REASON FOR EXAM: Male, 54 years old. STROKE ALERT, S/P TNK RADIATION DOSAGE (If Supplied By Facility): CTDIvol = ( 44.99 ) mGy, DLP = ( 779.23 ) mGycm TECHNIQUE: Transaxial CT imaging of the brain was performed without administration of intravenous contrast material. Individualized dose optimization techniques were used for this CT. COMPARISON: Earlier today FINDINGS: Normal soft tissue structures. Normal calvarium. Normal size ventricles and extra-axial spaces for the patient''s age. Normal white matter tracts of the cerebral hemispheres. Normal basal ganglia and thalami. Normal brainstem. Normal cerebellum. There is no intracranial hemorrhage. There are no findings of an acute ischemic infarction. Normal visualized paranasal sinuses. CT/Brain/Head without Contrast IMPRESSION: Normal unenhanced CT scan of the brain. N.B. : The above Results were Read Back by Roney Charles MD to Irina Couch MD, and understanding confirmed on 05/02/2024 22:29:23 (ET). Electronically Signed: Roney Charles MD at 22:30 EDT ,
--- NOTE | 2024-05-02 22:11 | ED.RN ---
2143: BEDSIDE NIHSS COMPLETED W/ ICU NURSE ASHWIN. PATIENT NIHSS CHANGED GREATER THAN 3. STROKE ALERT INITIATED AT APPROX 2150.
[2024-05-02 22:21] LABS: Bedside Glucose 103 mg/dL (74-106)
--- NOTE | 2024-05-02 22:54 | PCM.HOSP.N ---
Hospitalist Note ICU CVA Alert called at 22:00 immediately as patient had just transitioned from the ED bed to the ICU bed and was having his initial evaluation. He had recurrent L sided vision deficits and dysarthria, aphasia in addition to R sided throbbing 10/10 headache. By the time the past was taken to the elevators for plan to transition down for CT scan he had resolution of aphasia and dysarthria but ongoing headache and left-sided visual defects. CT of the brain obtained with no acute intracranial findings/no evidence of any bleed which was confirmed by radiology at a later time. Discussed case with [facility] on-call neurology for telestroke and reviewed his case, tenecteplase administration and exams on admission as well as current. Teleneurology stroke recommendation given that patient is not a candidate for any recurrent stroke desire to avoid unnecessary repeat CT Head/stroke alerts if not appropriate. Current request per Neurology is that if patient has similar symptoms to his initial then defer repeat CT head and stroke alert BUT if there are any new additional symptoms OR if there are recurrent symptoms including the entirety (vision deficits, dysarthria, aphasia, headache) but his blood pressure changes dramatically and is elevated then for those cases recommended repeat CT head and alert.
[2024-05-03] VITALS (36 sets, daily range): BP systolic 121–152; BP diastolic 73–103; PULSE 71–98; RESP 16–26; TEMP 36.2–36.9; O2SAT 94–100; BMI 28.6
[2024-05-03] MEDS: 0.9% Normal Saline (1000mL) 1,000 ML 100 ML IV ×2 (00:54→03:51)
[2024-05-03] MEDS: Acetaminophen 325 MG Tablet 650 MG PO ×3 (00:54→09:36)
[2024-05-03] MEDS: Atorvastatin Calcium 80 MG Tablet PO ×2 (00:58→21:13)
--- NOTE | 2024-05-03 00:58 | CON.PCM.CC_ITS ---
HPI Consult Data Date of Consult: 05/03/24 HPI Narrative HPI Narrative: 54 y/o M w/ PMHx: Former EtOH abuse (~ 20 beers daily, sober x 1 year), Chronic cannabis use, Hx VTE (PE, off anticoagulation x 2-3 months), Tobacco use who presents to the [facility] ED on 05/02/24 with history of onset left-sided visual defects as well as aphasia and dysarthria with slurred garbled speech, confused reportedly starting at approximately 1810. A Code Stroke was called and the patient was given TNK. No LVO on CTA. He was admitted to the ICU but at some point following TPA admin he had a worsening HINOJOSA and a repeat CTH was done which showed no acute injury. He is now in the ICU. FOR[facility]LY [facility] Medical History (Updated 05/02/24 @ 21:[address] Irina Couch MD) History of venous thromboembolism Tobacco use Osteoarthritis of left knee Radiculopathy due to disorder of intervertebral disc of lumbar spine Lower back pain Home Medications ?Medication ?Instructions ?Recorded ?Last Taken ?Type acetaminophen 650 mg 650 mg PO Q12H 08/08/22 Unknown History tablet,extended release (Tylenol 8 Hour) cholecalciferol (vitamin D3) 50 50 mcg PO DAILY 09/19/22 Unknown History mcg (2,000 unit) capsule apixaban 5 mg tablet (Eliquis) 5 mg PO BID PE 05/02/24 Unknown History Allergy/AdvReac Type Severity Reaction Status Date / Time No Known Allergies Allergy Verified 05/02/24 19:56 Family History (Updated 05/02/24 @ 21:[address] Irina Couch MD) Mother CVA (cerebral vascular accident) Father No problems noted. Surgical History History of knee surgery History of hernia surgery Social History (Updated 05/02/24 @ 21:[address] Irina Couch MD) household members: none Smoking Status: Current every day smoker tobacco type: cigarettes Smoking packs per day: 0.5 Smoking cigarettes per day: 10.0 alcohol intake: former details: Former EtOH abuse (> 20 beers daily), sober ~ 1 year. substance use type: marijuana ROS ROS Narrative per HPI Objective Data Objective Data Vital Signs: Vital Signs Last response 3 Temperature 36.1 C L 05/02/24 23:00 Temperature Source Temporal 05/02/24 23:00 Pulse Rate 80 05/02/24 23:30 Respiratory Rate 22 H 05/02/24 23:30 Blood Pressure 149/99 H 05/02/24 23:30 Blood Pressure Mean 115 05/02/24 23:30 Blood Pressure Source Monitor 05/02/24 23:30 Blood Pressure Position Semi-Fowlers 05/02/24 23:00 Blood Pressure Location Left Arm 05/02/24 23:00 Pulse Ox 99 05/02/24 23:30 Oxygen Delivery Method Room Air 05/02/24 23:30 I&O: I&O Last 24 Hours 3 05/02/24 05/02/24 05/03/24 11:59 23:59 11:59 Intake Total 800 / 800 Balance 800 / 800 I&O: Total Stay 3 05/02/24 19:49 thru 05/02/24 23:02 Intake Total 800 Balance 800 Current Meds Ordered / Administered: Current meds ordered / Administered 3 Generic Name Dose Route Start Last Admin Trade Name Freq PRN Reason Stop Dose Admin Acetaminophen 650 mg 05/02/24 20:21 Acetaminophen 325 Mg Tablet PO X1 PRN Temp > 99.6 F Acetaminophen 650 mg 05/02/24 22:04 05/03/24 00:54 Acetaminophen 325 Mg Tablet PO 650 mg Q4H PRN PRN Administration Fever, pain 1-10/10 Al Hydrox/Mg Hydrox/Simethicone 30 ml 05/02/24 22:04 Mag /Aluminum/Simeth Wch Udc 30 Ml Oral.Susp PO Q6H PRN PRN Gastric Burning Albuterol Sulfate 2.5 mg 05/02/24 22:04 Albuterol 2.5 Mg/3 Ml Vial.Neb. INHALATION Q2H PRN PRN Dyspnea, wheezing Atorvastatin Calcium 80 mg 05/02/24 22:04 05/03/24 00:58 Atorvastatin Calcium 80 Mg Tablet PO 80 mg QHS LIZA Administration Guaifenesin 10 ml 05/02/24 22:04 Guaifenesin 10 Ml Udc (200mg/10ml) PO Q4H PRN PRN COUGH Sodium Chloride 1,000 mls @ 100 mls/hr 05/02/24 22:04 05/03/24 00:54 IV 05/03/24 08:03 100 mls/hr .Q10H LIZA Administration Nicardipine/Sodium Chloride 20 mg in 200 mls @ 50 mls/hr 05/02/24 22:04 05/03/24 00:49 Cardene-Avery 20 Mg/200 Ml Soln CONT INF 05/03/24 22:04 Not Given Q4H LIZA Protocol 5 MG/HR Sodium Chloride 250 mls @ 15 mls/hr 05/02/24 23:26 IV .[id number] PRN Additional IVPB Infusion Sodium Chloride 250 mls @ 15 mls/hr 05/02/24 23:26 IV .[id number] PRN Saline Flush Melatonin 3 mg 05/02/24 22:04 Melatonin 3 Mg Tablet PO QHS PRN PRN INSOMNIA Ondansetron HCl 4 mg 05/02/24 22:04 Ondansetron 4 Mg/2 Ml Vial IV Q8H PRN PRN NAUSEA/VOMITING Prochlorperazine Edisylate 5 mg 05/02/24 22:04 Prochlorperazine 10 Mg/2 Ml Vial IV Q4H PRN PRN Breakthrough Nausea/Vomiting Senna/Docusate Sodium 2 tablet 05/02/24 22:04 Senna/Docusate Sodium 1 Tablet PO BID PRN PRN Constipation Sodium Chloride 10 - 40 ml 05/02/24 23:26 0.9% Saline Lock 10 Ml Syringe IV UD PRN SALINE FLUSH Physical Exam Const alert and oriented x3 HEENT normocephalic and head/scalp atraumatic Eyes General Eye: normal appearance of both eyes Neck General: normal visual inspection and trachea midline Resp normal respiratory effort and normal air movement Cardio Rate: regular rate Rhythm: regular rhythm Neuro oriented x3 Neuro Narrative: Dysmetria and left homonymous hemianopsia Lab / Micro Data 05/02/24 19:55 05/02/24 19:55 Labs: Laboratory Results - last 24 hr 05/02/24 19:55: WBC 13.7 H, RBC 3.91 L, Hgb 12.4 L, Hct 37.3 L, MCV 95.4 H, MCH 31.7, MCHC 33.2, RDW Std Deviation 43.9, RDW Coeff of Roxana 12.6, Plt Count 196, MPV 9.4, Immature Gran % (Auto) 0.300, Neut % (Auto) 84.3 H, Lymph % (Auto) 7.7 L, Hart % (Auto) 6.1, Eos % (Auto) 1.2, Baso % (Auto) 0.4, Absolute Neuts (auto) 11.6 H, Absolute Lymphs (auto) 1.05, Nucleated RBC % 0, PT 14.7, INR 1.2, APTT 25.5, Sodium 139, Potassium 4.3, Chloride 111 H, Carbon Dioxide 24.0, Anion Gap 4 L, BUN 15, Creatinine 1.02, Estim Creat Clear Calc 83.11, Est GFR (MDRD) Af Amer 97, Est GFR (MDRD) Non-Af 80, BUN/Creatinine Ratio 14.7, Glucose 101, Calcium 8.7, Phosphorus 2.0 L, Magnesium 2.0, Troponin I High Sens 1342 H* 05/02/24 20:20: POC Glucose 83 05/02/24 20:36: Urine Opiates Screen NEGATIVE, Urine Methadone Screen NEGATIVE, Ur Barbiturates Screen NEGATIVE, Ur Phencyclidine Scrn NEGATIVE, Ur Amphetamines Screen POSITIVE H, MDMA (Ecstasy) Screen POSITIVE H, U Benzodiazepines Scrn NEGATIVE, Urine Cocaine Screen NEGATIVE, U Cannabinoids Screen NEGATIVE, Ur Drug Screen Comment 05/02/24 21:59: POC Glucose 103 Imaging Radiology Impression Head/Neck CTA 05/02/24 19:55 IMPRESSION: Negative CTA carotid and CTA brain. Electronically Signed: Tarik Aviles DO at 20:27 EDT , ADDENDUM: 05/02/242034 IMPRESSION: Negative CTA carotid and CTA brain. N.B. : The above Results were Read Back by Tarik Aviles DO to Salvatore Hamm MD, and understanding confirmed on 05/02/2024 20:28:06 (ET). Electronically Signed: Tarik Aviles DO at 20:27 EDT , Brain CT 05/02/24 20:02 IMPRESSION: No evidence of acute intracranial pathology. Specifically, no infarct or hemorrhage. ASPECTS: 10. N.B. : The above Results were Read Back by Tarik Aviles DO to Salvatore Hamm MD, and understanding confirmed on 05/02/2024 20:15:32 (ET). Electronically Signed: Tarik Aviles DO at 20:14 EDT , ADDENDUM: 05/02/242021 IMPRESSION: No evidence of acute intracranial pathology. Specifically, no infarct or hemorrhage. ASPECTS: 10. N.B. : The above Results were Read Back by Tarik Aviles DO to Salvatore Hamm MD, and understanding confirmed on 05/02/2024 20:15:32 (ET). Electronically Signed: Tarik Aviles DO at 20:14 EDT , Chest X-Ray 05/02/24 20:50 IMPRESSION: No acute findings in the chest. Electronically Signed: Tarik Aviles DO at 21:05 EDT , Brain CT 05/02/24 22:05 IMPRESSION: Normal unenhanced CT scan of the brain. N.B. : The above Results were Read Back by Rnoey Charles MD to Irina Couch MD, and understanding confirmed on 05/02/2024 22:29:23 (ET). Electronically Signed: Roney Charles MD at 22:30 EDT , ADDENDUM: 05/02/242236 IMPRESSION: Normal unenhanced CT scan of the brain. N.B. : The above Results were Read Back by Roney Charles MD to Irina Couch MD, and understanding confirmed on 05/02/2024 22:29:23 (ET). Electronically Signed: Roney Charles MD at 22:30 EDT , Assessment and Plan . Assessment and plan: Acute CVA KIAN AMS Elevated Trop Headache Hx of PE not on AC Positive UDS Plan - Admit ICU - Stroke w/u per Neurology - No LVO - HINOJOSA meds-->repeat CTH negative for hemorrhage - NIH is 8 per report - Monitor Trop, follow up ECHO - GI ppx w/ PPI - No DVT ppx Critical Care Kevin 60 minutes The entirety of this encounter was done via Telemedicine
[2024-05-03 04:11] LABS: Absolute Lymphocyte Count 1.55 X10^3/uL (0.83-4.51); Absolute Neutrophil Count 7.9 X10^3/uL (2.0-7.7); Basophil# 0.05 X10^3/uL; Basophil% 0.5 % (0-1); Eosinophil# 0.24 X10^3/uL; Eosinophils% 2.2 % (0-5); Hematocrit 34.7 % (40-54); Hemoglobin 11.7 g/dL (13.0-16.5); Lymphocyte # 1.55 X10^3/ul (0.83-4.51); Lymphocyte % 14.4 % (19-41); Mean Corp Hgb Conc 33.7 g/dL (32-36); Mean Corpuscular Volume 94.8 fL (80-94); Mean Platelet Vol. 9.6 fl (6.2-12.0); Monocyte# 0.97 X10^3/uL; NRBC Flagged by Analyzer 0 % (0-5); Neutrophil # 7.92 X10^3/uL (2.7-7.7); Neutrophil % 73.5 % (47-70); Platelet Count 197 K/mm3 (150-450); RBC Distribution Width CV 12.7 % (11.6-14.6); RBC Distribution Width SD 44.1 fl (35.1-43.9); Red Blood Count 3.66 M/mm3 (4.6-6.2); White Blood Count 10.8 K/mm3 (4.4-11.0)
[2024-05-03 04:41] LABS: Troponin-I HS 2437 pg/mL (3.0-78.0)
[2024-05-03 04:43] LABS: AST(SGOT) 19 U/L (15-37); Alanine Aminotransfer ALT/SGPT 22 U/L (16-61); Albumin, Serum 3.3 g/dL (3.2-5.0); Alkaline Phosphatase 100 U/L (45-117); Anion Gap 7 (5-15); BUN 11 mg/dL (7-18); BUN/Creat Ratio 12.5 RATIO (10-20); Calcium,Total 8.8 mg/dL (8.5-10.1); Chloride 107 mmol/L (98-107); Cholesterol 198 mg/dL (200); Creatinine, Serum 0.88 mg/dL (0.70-1.30); EST Glomerular Filtration Rate 95 mL/min (>60); Est Glom Filt Rate - Afr Amer 115 mL/min (>60); Estimated Creatinine Clearance 96.54 ml/min; Ferritin 244 ng/mL (26-388); Globulin 3.2 g/dL (2.2-4.2); Glucose 97 mg/dL (74-106); High Density Lipoprotein 34 mg/dL; Iron 59 ug/dL (65-175); Iron Binding Capacity,Total 271 ug/dL (250-450); PERCENT IRON SATURATION 21.8 % (15.0-55.0); Potassium 3.8 mmol/L (3.5-5.1); Protein, Total 6.5 g/dL (6.4-8.2); Sodium Level 136 mmol/L (136-145); Triglycerides 123 mg/dL; Very Low Density Lipoprotein 25 mg/dL (5-40)
--- NOTE | 2024-05-03 04:58 | EKG12_ITS ---
Test Reason : STROKE ALERT Blood Pressure : / mmHG Vent. Rate : 077 BPM Atrial Rate : 077 BPM P-R Int : 168 ms QRS Dur : 078 ms QT Int : 378 ms P-R-T Axes : 070 004 039 degrees QTc Int : 427 ms Normal sinus rhythm Possible Inferior infarct , age undetermined Abnormal ECG Confirmed by Andres Ivory ([id number]), art editor MALICK MEYER ([id number]) on 05/03/2024 1:34:40 PM Referred By: FRANCY Confirmed By:Andres Ivory
[2024-05-03 06:17] LABS: Troponin-I HS 1939 pg/mL (3.0-78.0)
--- NOTE | 2024-05-03 07:56 | PN.HOSP_ITS ---
Reason for Visit Reason for Visit: Diagnoses Homonymous bilateral field defects, left side (05/02/24) Subjective Subjective still with visual field deficits Objective Data Objective Data Vital Signs: Vital Signs Temp Pulse Resp BP Pulse Ox O2 Del Method 36.6 C 77 17 129/87 H 96 Room Air 05/03/24 06:40 05/03/24 06:40 05/03/24 06:40 05/03/24 06:40 05/03/24 06:40 05/03/24 06:40 Oxygen Delivery Method Room Air Weight: 82.9 kg Body Mass Index (BMI) 28.6 Intake & Output: Intake and Output for Last 24 Hours 05/01/24 05/02/24 05/03/24 23:59 23:59 23:59 Intake Total 800 / 800 940 / 940 Output Total 1200 / 1200 Balance 800 / -200 -260 / -260 Lab / Micro Data 05/03/24 03:55 05/03/24 03:55 Labs: Laboratory Results - last 24 hr 05/02/24 19:55: WBC 13.7 H, RBC 3.91 L, Hgb 12.4 L, Hct 37.3 L, MCV 95.4 H, MCH 31.7, MCHC 33.2, RDW Std Deviation 43.9, RDW Coeff of Roxana 12.6, Plt Count 196, MPV 9.4, Immature Gran % (Auto) 0.300, Neut % (Auto) 84.3 H, Lymph % (Auto) 7.7 L, Petroleum % (Auto) 6.1, Eos % (Auto) 1.2, Baso % (Auto) 0.4, Absolute Neuts (auto) 11.6 H, Absolute Lymphs (auto) 1.05, Nucleated RBC % 0, PT 14.7, INR 1.2, APTT 25.5, Sodium 139, Potassium 4.3, Chloride 111 H, Carbon Dioxide 24.0, Anion Gap 4 L, BUN 15, Creatinine 1.02, Estim Creat Clear Calc 83.11, Est GFR (MDRD) Af Amer 97, Est GFR (MDRD) Non-Af 80, BUN/Creatinine Ratio 14.7, Glucose 101, Calcium 8.7, Phosphorus 2.0 L, Magnesium 2.0, Troponin I High Sens 1342 H* 09/22/24 20:20: POC Glucose 83 05/02/24 20:36: Urine Opiates Screen NEGATIVE, Urine Methadone Screen NEGATIVE, Ur Barbiturates Screen NEGATIVE, Ur Phencyclidine Scrn NEGATIVE, Ur Amphetamines Screen POSITIVE H, MDMA (Ecstasy) Screen POSITIVE H, U Benzodiazepines Scrn NEGATIVE, Urine Cocaine Screen NEGATIVE, U Cannabinoids Screen NEGATIVE, Ur Drug Screen Comment 05/02/24 21:59: POC Glucose 103 05/03/24 03:55: WBC 10.8, RBC 3.66 L, Hgb 11.7 L, Hct 34.7 L, MCV 94.8 H, MCH 32.0, MCHC 33.7, RDW Std Deviation 44.1 H, RDW Coeff of Roxana 12.7, Plt Count 197, MPV 9.6, Immature Gran % (Auto) 0.400, Neut % (Auto) 73.5 H, Lymph % (Auto) 14.4 L, Petroleum % (Auto) 9.0, Eos % (Auto) 2.2, Baso % (Auto) 0.5, Absolute Neuts (auto) 7.9 H, Absolute Lymphs (auto) 1.55, Nucleated RBC % 0, Sodium 136, Potassium 3.8, Chloride 107, Carbon Dioxide 22.0, Anion Gap 7, BUN 11, Creatinine 0.88, Estim Creat Clear Calc 96.54, Est GFR (MDRD) Af Amer 115, Est GFR (MDRD) Non-Af 95, BUN/Creatinine Ratio 12.5, Glucose 97, Calcium 8.8, Iron 59 L, TIBC 271, Iron Saturation 21.8, Ferritin 244, Total Bilirubin 0.60, AST 19, ALT 22, Alkaline Phosphatase 100, Troponin I High Sens 2437 H*, Total Protein 6.5, Albumin 3.3, Globulin 3.2, Albumin/Globulin Ratio 1.0, Triglycerides 123, Cholesterol 198, LDL Cholesterol 139 H, VLDL Cholesterol 25, HDL Cholesterol 34 L, Folate 5.90, TSH 2.960 05/03/24 05:20: Troponin I High Sens 1939 H* Micro: Microbiology 05/03/24 00:15 Mucosa - Nasopharyngeal Respiratory Panel (PCR) - Final Radiography Diagnostic Testing: Radiology Impression Head/Neck CTA 05/02/24 19:55 IMPRESSION: Negative CTA carotid and CTA brain. Electronically Signed: Tarik Aviles DO at 20:27 EDT , ADDENDUM: 05/02/242034 IMPRESSION: Negative CTA carotid and CTA brain. N.B. : The above Results were Read Back by Tarik Aviles DO to Salvatore Hamm MD, and understanding confirmed on 05/02/2024 20:28:06 (ET). Electronically Signed: Tarik Aviles DO at 20:27 EDT , Brain CT 05/02/24 20:02 IMPRESSION: No evidence of acute intracranial pathology. Specifically, no infarct or hemorrhage. ASPECTS: 10. N.B. : The above Results were Read Back by Tarik Aviles DO to Salvatore Hamm MD, and understanding confirmed on 05/02/2024 20:15:32 (ET). Electronically Signed: Tarik Aviles DO at 20:14 EDT , ADDENDUM: 05/02/242021 IMPRESSION: No evidence of acute intracranial pathology. Specifically, no infarct or hemorrhage. ASPECTS: 10. N.B. : The above Results were Read Back by Tarik Aviles DO to Salvatore Hamm MD, and understanding confirmed on 05/02/2024 20:15:32 (ET). Electronically Signed: Tarik Aviles DO at 20:14 EDT , Chest X-Ray 05/02/24 20:50 IMPRESSION: No acute findings in the chest. Electronically Signed: Tarik VLayton Aviles DO at 21:05 EDT , Brain CT 05/02/24 22:05 IMPRESSION: Normal unenhanced CT scan of the brain. N.B. : The above Results were Read Back by Roney Charles MD to Irina Couch MD, and understanding confirmed on 05/02/2024 22:29:23 (ET). Electronically Signed: Roney Charles MD at 22:30 EDT , ADDENDUM: 05/02/242236 IMPRESSION: Normal unenhanced CT scan of the brain. N.B. : The above Results were Read Back by Roney Charles MD to Irina Couch MD, and understanding confirmed on 05/02/2024 22:29:23 (ET). Electronically Signed: Roney Charles MD at 22:30 EDT , Physical Exam Const alert and no apparent distress HEENT head/scalp atraumatic and moist oral mucous membranes HEENT Narrative: left lateral visual field deficits Eyes EOMs intact bilaterally Neck no lymphadenopathy and supple Resp normal respiratory effort, no retractions, no use of accessory muscles and clear to auscultation bilaterally Cardio regular rate, regular rhythm, S1 normal heart sound and S2 normal heart sound GI normal to inspection, nondistended, normoactive bowel sounds, soft to palpation, non-tender and non-distended Extremity normal to inspection, full ROM and no clubbing, cyanosis or edema Neuro oriented x3 and moves all extremities Neuro Narrative: Some ataxia left upper extremity. Impaired left visual davison. Sensorium / Orientation: awake and alert Assessment & Plan Assessment/Plan (1) Left homonymous hemianopsia: PLAN: Plan Acute CVA * sp TNK * MRI brain, echo, PT OT. * Discussed with Dr. Hartman of [facility] neurology: Recommends CT scan of the head in 24 hours post TNK. And if no bleeding, then would recommend aspirin. Also recommending hypercoagulable workup. NSTEMI * troponins peaked at 2437 * check echo * cards consult DVTs * Pulmonary duplex showed bilateral lower extremity DVTs. Discussed with neurology, they are recommending holding off on anticoagulation at this time until we get further imaging with CAT scan and MRI. Chronic conditions: * History of VTE: Noted PE, DVT, not currently chronically anticoagulated, has been off therapy for 2 to 3 months, denies any provoking factors for onset of DVT and PE, given elevated troponin may need to obtain CTPA once 24 hours out from initial CTA head and neck but given unable to obtain at this time will obtain duplex ultrasound lower extremities requested to be cautious especially given elevated troponin. In addition at this point may potentially need to consider hypercoagulable panel but we cannot draw any more labs at this point because of the fact that the patient had tenecteplase so this will need to be obtained at a later time. * Tobacco Abuse: Encouraged cessation DVT prophylaxis: SCDs, defer chemoprophylaxis given tenecteplase usage. Full Code Charges/Coding Visit Charges Inpatient E&M: 11489 Subs Hosp L3
[2024-05-03 08:20] LABS: Vitamin B12 247 pg/mL (211-911)
--- NOTE | 2024-05-03 08:43 | PCM.CONS.C ---
Assessment & Plan Assessment/Plan (1) Left homonymous hemianopsia: PLAN: Patient continues to experience visual field deficits. He received TNK and is due to have repeat CT scan this evening and MRI tomorrow. Further evaluation and treatment per the primary service and neurology consultants. Echocardiogram with bubble study is ordered to evaluate for possible [id number] shunt. (2) Elevated blood-pressure reading without diagnosis of hypertension: PLAN: Patient's blood pressures come under much better control. Will defer to primary service for long-term management. (3) Elevated troponin: PLAN: Patient's troponin initially was 1300 went up to 2900 and then to trending back down. He has no chest pain he has a low YISSEL risk score. 2D echocardiogram for LV function and further cardiac evaluation is pending at this time. The patients CV risk factors include smoking and hyperlipidemia. He was hypertensive on admission but has since normalized on no antihypertensive medical therapy. Will continue to monitor the patient for anginal symptoms. Currently he is asymptomatic. Further recommendations pending results of the 2D echocardiogram. (4) History of venous thromboembolism: PLAN: Ultrasound the lower extremity shows DVTs on a preliminary report. The final report is pending. The patient does have a history of PEs and DVTs treated at [facility] within the past few months to several weeks. The patient is somewhat confused about the timing of his previous treatment he is aware that he stopped the oral anticoagulation therapy when he ran out of the medication and did not get it refilled. PLAN: Plan 1. 2D echocardiogram. Further recommendations from a cardiovascular perspective to follow. 2. Continue with guideline directed medical care for the patient's CVA and DVTs. 3. We will follow along please call if further assistance is needed. HPI Consult Data Date of Consult: 05/03/24 HPI Narrative Reason for Consultation: Elevated troponins and a CVA. HPI Narrative: TUSHAR ESTEBAN, is a 54 M who presents with symptoms c/w CVA and has elevated troponins trending down. Former EtOH abuse (~ 20 beers daily, sober x 1 year), Chronic cannabis use, Hx VTE (PE, off anticoagulation x 2-3 months / admitted at [facility]), Tobacco use who presents to the [facility] ED on 05/02/24 with history of onset left-sided visual defects as well as aphasia and dysarthria with slurred garbled speech, and confusion. Patient received TNK without any significant improvement per the nursing staff. Currently the patient continues to note visual field deficits. Preliminary US LE shows DVTs - formal reading pending. The patient denies chest pain. The patient denies any shortness of breath he is resting comfortably in bed. He has no previous history of arrhythmias syncope or near syncope to his knowledge. No FH of CAD or CV issues to his knowledge. No h/o DM. He is a smoker (1/2 pack per day for many years). Does not know lipid status. No h/o HTN. Echo to be done today. Previous pulmonary embolus was unexplained by the patient's report. He does not remember if the hypercoagulable evaluation was performed. The patient still continues to be somewhat confused about his past medical history and dates and times. [facility] Medical History (Updated 05/03/24 @ 09:[address] Andrse Ivory MD) History of venous thromboembolism Tobacco use Osteoarthritis of left knee Radiculopathy due to disorder of intervertebral disc of lumbar spine Lower back pain Home Medications ?Medication ?Instructions ?Recorded ?Last Taken ?Type acetaminophen 650 mg 650 mg PO Q12H 08/08/22 Unknown History tablet,extended release (Tylenol 8 Hour) cholecalciferol (vitamin D3) 50 50 mcg PO DAILY 09/19/22 Unknown History mcg (2,000 unit) capsule apixaban 5 mg tablet (Eliquis) 5 mg PO BID PE 05/02/24 Unknown History Allergy/AdvReac Type Severity Reaction Status Date / Time No Known Allergies Allergy Verified 05/02/24 19:56 Family History Mother CVA (cerebral vascular accident) Father No problems noted. 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 substance use type: marijuana ROS Constitutional Constitutional: Reports systems reviewed and no addt'l complaints, except as documented and as per HPI Eyes Eyes: Reports as per HPI ENT HEENT: Reports systems reviewed and no addt'l complaints, except as documented Cardiovascular Cardiovascular: Reports as per HPI Respiratory/Chest Respiratory/Chest: Reports systems reviewed and no addt'l complaints, except as documented and as per HPI Gastrointestinal Gastrointestinal: Reports systems reviewed and no addt'l complaints, except as documented Genitourinary Genitourinary: Reports systems reviewed and no addt'l complaints, except as documented Musculoskeletal Musculoskeletal: Reports systems reviewed and no addt'l complaints, except as documented Integumentary Integumentary: Reports systems reviewed and no addt'l complaints, except as documented Neurologic Neurologic: Reports as per HPI Psychiatric Psychiatric: Reports systems reviewed and no addt'l complaints, except as documented Endocrine Endocrinology: Reports systems reviewed and no addt'l complaints, except as documented Hematologic/Lymphatic Hematologic/Lymphatic: Reports systems reviewed and no addt'l complaints, except as documented Allergic/Immunologic Allergic/Immunologic: Reports systems reviewed and no addt'l complaints, except as documented Physical Exam Narrative Patient examined in bed. Const alert Constitutional Narrative: Slow and deliberate and answering questions. HEENT normocephalic Eyes EOMs intact bilaterally Eyes Narrative: Patient reports visual field cut Neck no JVD and no carotid bruits Chest inspection of chest normal Resp normal respiratory effort and clear to auscultation bilaterally Cardio regular rate, regular rhythm, S1 normal heart sound, S2 normal heart sound, no murmurs, no rub, no gallops, no JVD and peripheral pulses 2+ throughout GI non-tender Extremity no pedal edema Skin no rashes or lesions noted Psych mental status grossly normal Psych Narrative: Slow to answer questions and appears still slightly confused. Risk Stratification Risk Stratification Applicable: Yes Age >/= 65: No >/= 3 CAD Risk Factors (HTN, HLD, DM, family hx of CAD, or current smoker): No Aspirin Use in the Past 7 Days: No Severe Angina (>/= episodes in 24 hours): No EKG ST Changes >/= 0.5mm: No Positive Cardiac Marker: Yes YISSEL Risk Stratification Score: 1 YISSEL % Risk: 5% Risk Charges/Coding Visit Charges Inpatient E&M: 41785 Init Hosp L3 Objective Data Vital Signs: Vital Signs Temp Pulse Resp BP Pulse Ox O2 Del Method 97.8 F 77 17 129/87 H 96 Room Air 05/03/24 06:40 05/03/24 06:40 05/03/24 06:40 05/03/24 06:40 05/03/24 06:40 05/03/24 06:40 Oxygen Delivery Method Room Air Weight: 182 lb 12.211 oz Body Mass Index (BMI) 28.6 Intake & Output: Intake and Output for Last 24 Hours 05/01/24 05/02/24 05/03/24 23:59 23:59 23:59 Intake Total 800 / 800 940 / 940 Output Total 1200 / 1200 Balance 800 / -200 -260 / -260 Lab / Micro Data Attestation: I reviewed the patient's lab results. 05/03/24 03:55 05/03/24 03:55 Labs: Laboratory Results - last 24 hr 05/02/24 19:55: WBC 13.7 H, RBC 3.91 L, Hgb 12.4 L, Hct 37.3 L, MCV 95.4 H, MCH 31.7, MCHC 33.2, RDW Std Deviation 43.9, RDW Coeff of Roxana 12.6, Plt Count 196, MPV 9.4, Immature Gran % (Auto) 0.300, Neut % (Auto) 84.3 H, Lymph % (Auto) 7.7 L, Hendry % (Auto) 6.1, Eos % (Auto) 1.2, Baso % (Auto) 0.4, Absolute Neuts (auto) 11.6 H, Absolute Lymphs (auto) 1.05, Nucleated RBC % 0, PT 14.7, INR 1.2, APTT 25.5, Sodium 139, Potassium 4.3, Chloride 111 H, Carbon Dioxide 24.0, Anion Gap 4 L, BUN 15, Creatinine 1.02, Estim Creat Clear Calc 83.11, Est GFR (MDRD) Af Amer 97, Est GFR (MDRD) Non-Af 80, BUN/Creatinine Ratio 14.7, Glucose 101, Calcium 8.7, Phosphorus 2.0 L, Magnesium 2.0, Troponin I High Sens 1342 H* 05/02/24 20:20: POC Glucose 83 05/02/24 20:36: Urine Opiates Screen NEGATIVE, Urine Methadone Screen NEGATIVE, Ur Barbiturates Screen NEGATIVE, Ur Phencyclidine Scrn NEGATIVE, Ur Amphetamines Screen POSITIVE H, MDMA (Ecstasy) Screen POSITIVE H, U Benzodiazepines Scrn NEGATIVE, Urine Cocaine Screen NEGATIVE, U Cannabinoids Screen NEGATIVE, Ur Drug Screen Comment 05/02/24 21:59: POC Glucose 103 05/03/24 03:55: WBC 10.8, RBC 3.66 L, Hgb 11.7 L, Hct 34.7 L, MCV 94.8 H, MCH 32.0, MCHC 33.7, RDW Std Deviation 44.1 H, RDW Coeff of Roxana 12.7, Plt Count 197, MPV 9.6, Immature Gran % (Auto) 0.400, Neut % (Auto) 73.5 H, Lymph % (Auto) 14.4 L, Hendry % (Auto) 9.0, Eos % (Auto) 2.2, Baso % (Auto) 0.5, Absolute Neuts (auto) 7.9 H, Absolute Lymphs (auto) 1.55, Nucleated RBC % 0, Sodium 136, Potassium 3.8, Chloride 107, Carbon Dioxide 22.0, Anion Gap 7, BUN 11, Creatinine 0.88, Estim Creat Clear Calc 96.54, Est GFR (MDRD) Af Amer 115, Est GFR (MDRD) Non-Af 95, BUN/Creatinine Ratio 12.5, Glucose 97, Calcium 8.8, Iron 59 L, TIBC 271, Iron Saturation 21.8, Ferritin 244, Total Bilirubin 0.60, AST 19, ALT 22, Alkaline Phosphatase 100, Troponin I High Sens 2437 H*, Total Protein 6.5, Albumin 3.3, Globulin 3.2, Albumin/Globulin Ratio 1.0, Triglycerides 123, Cholesterol 198, LDL Cholesterol 139 H, VLDL Cholesterol 25, HDL Cholesterol 34 L, Folate 5.90, TSH 2.960 05/03/24 05:20: Troponin I High Sens 1939 H*, Vitamin B12 247 Micro: Microbiology 05/03/24 00:15 Mucosa - Nasopharyngeal Respiratory Panel (PCR) - Final Rhythm Strip Rhythm Strip: Sinus Rhythm Rate: 80 Ectopy: PVC(s), PAC(s) and - (No atrial fib documented.) Cardiology Labs/Tests 05/02/24 19:55: WBC 13.7 H, RBC 3.91 L, Hgb 12.4 L, Hct 37.3 L, MCV 95.4 H, MCH 31.7, MCHC 33.2, Plt Count 196, MPV 9.4, Immature Gran % (Auto) 0.300, Neut % (Auto) 84.3 H, Lymph % (Auto) 7.7 L, Hendry % (Auto) 6.1, Eos % (Auto) 1.2, Baso % (Auto) 0.4, Absolute Neuts (auto) 11.6 H, Nucleated RBC % 0, PT 14.7, INR 1.2, APTT 25.5, Sodium 139, Potassium 4.3, Chloride 111 H, Carbon Dioxide 24.0, Anion Gap 4 L, BUN 15, Creatinine 1.02, Est GFR (MDRD) Af Amer 97, Est GFR (MDRD) Non-Af 80, BUN/Creatinine Ratio 14.7, Glucose 101, Calcium 8.7, Phosphorus 2.0 L, Magnesium 2.0 05/03/24 03:55: WBC 10.8, RBC 3.66 L, Hgb 11.7 L, Hct 34.7 L, MCV 94.8 H, MCH 32.0, MCHC 33.7, Plt Count 197, MPV 9.6, Immature Gran % (Auto) 0.400, Neut % (Auto) 73.5 H, Lymph % (Auto) 14.4 L, Hendry % (Auto) 9.0, Eos % (Auto) 2.2, Baso % (Auto) 0.5, Absolute Neuts (auto) 7.9 H, Nucleated RBC % 0, Sodium 136, Potassium 3.8, Chloride 107, Carbon Dioxide 22.0, Anion Gap 7, BUN 11, Creatinine 0.88, Est GFR (MDRD) Af Amer 115, Est GFR (MDRD) Non-Af 95, BUN/Creatinine Ratio 12.5, Glucose 97, Calcium 8.8, Iron 59 L, TIBC 271, Iron Saturation 21.8, Ferritin 244, Total Bilirubin 0.60, Triglycerides 123, Cholesterol 198, LDL Cholesterol 139 H, VLDL Cholesterol 25, HDL Cholesterol 34 L Rhythm: EKG: ECHO: Stress Test: Cardiac Cath: PCI: CT Surgery: Holter monitor: EPS: PPM: CXR: Chest CT Scan: Radiography Diagnostic Testing: Radiology Impression Head/Neck CTA 05/02/24 19:55 IMPRESSION: Negative CTA carotid and CTA brain. Electronically Signed: Tarik VLayton Aviles DO at 20:27 EDT , ADDENDUM: 05/02/242034 IMPRESSION: Negative CTA carotid and CTA brain. N.B. : The above Results were Read Back by Tarik Aviles DO to Salvatore Hamm MD, and understanding confirmed on 05/02/2024 20:28:06 (ET). Electronically Signed: Tarik VLayton Aviles DO at 20:27 EDT , Brain CT 05/02/24 20:02 IMPRESSION: No evidence of acute intracranial pathology. Specifically, no infarct or hemorrhage. ASPECTS: 10. N.B. : The above Results were Read Back by Tarik Aviles DO to Salvatore Hamm MD, and understanding confirmed on 05/02/2024 20:15:32 (ET). Electronically Signed: Tarik VLayton Aviles DO at 20:14 EDT , ADDENDUM: 05/02/242021 IMPRESSION: No evidence of acute intracranial pathology. Specifically, no infarct or hemorrhage. ASPECTS: 10. N.B. : The above Results were Read Back by Tarik Aviles DO to Salvatore Hamm MD, and understanding confirmed on 05/02/2024 20:15:32 (ET). Electronically Signed: Tarik MonsalveLayton Aviles DO at 20:14 EDT , Chest X-Ray 05/02/24 20:50 IMPRESSION: No acute findings in the chest. Electronically Signed: Tarik Aviles DO at 21:05 EDT , Brain CT 05/02/24 22:05 IMPRESSION: Normal unenhanced CT scan of the brain. N.B. : The above Results were Read Back by Roney Charles MD to Irina Couch MD, and understanding confirmed on 05/02/2024 22:29:23 (ET). Electronically Signed: Roney Charles MD at 22:30 EDT , ADDENDUM: 05/02/247
[2024-05-03 09:12] LABS: Hemoglobin A1c 5.3 % (3.8-5.6)
--- NOTE | 2024-05-03 10:27 | CASEMGMT ---
OMERO POWELL Assessment Face to Face with patient for initial transition planning/care coordination assessment. OMERO POWELL introduced self and role at [facility], pt voices understanding. Pt is A&Ox4 and is resting comfortably in bed and is calm. Care providers, pharmacy, and demographics verified. Admitting dx: CVA LACE Strata: 1 PCP: Leda Alcantara Specialists: Denies Preferred Pharmacy: [facility] Insurance: [facility] A/B, [facility] Prescription Benefit: Yes LNOK: Romina Armenta (sister) Living Arrangements: Pt lives with his brother in a trailer with a flat entrance ADLs/IADLs: Ind Transportation: Self, Friends. Denies concerns at this time DME: Denies all DME uses or needs HHC/SNF: Denies History or needs Pt?s goal: Home Plan: Home no needs. 6-Click is 24. however, pt received TNK at 2030 yesterday and PT will be unable to evaluate until tomorrow. At this time, the pt states that he feels safe returning home with his brother once he is medically ready and denies HHC and OP Tx needs. Pt states that he was not taking his prescribed Eliquis at home. Pt states that it was not due to to the bains. Pt states that he didn't believe that it was needed. Pt educated on the importance of this medication at this time and CM will follow for the cost of the Rx at time of DC. Pt states understanding and denies further questions or concerns at this time. Prakash Gardner RN, CM
[2024-05-03] MEDS: Pantoprazole Sodium 40 MG in 0.9% Normal Saline (100mL MB+) 100 ML 330 MG IV (10:41)
[2024-05-03 11:29] LABS: Troponin-I HS 906 pg/mL (3.0-78.0)
--- NOTE | 2024-05-03 15:23 | STROKE.CONS ---
Assessment and Plan: Stroke Assessment/Plan #acute L homonymous hemianopsia -s/p TNK for possible stroke on 05/02 at 2021 -maintain post TNK neuro checks and BP goal <180/105 unitl 24 hour imaging -no antiplatelet/anticoagulant/chemical dvt prophylaxis until 24 hour imaging confirmed to show no hemorrhage -MRI brain w/wo contrast pending -found to have bilateral DVT. Recommend hypercoaguable work up including antiphospholipid antibody syndrome, PNH, FVL, PTGM. Would consider hematology consultation -TTE w bubble pending -cardiac telemetry monitoring -check lipid profile and HbA1c -CTA without severe stenosis or LVO or obvious CVST HPI Consult Data Date of Consult: 05/03/24 HPI Narrative HPI Narrative: 54 yo M w PMH of prior DVT/PE off AC, tobacco presents with with difficulty seeing and speaking. Presented on 05/02 at 6pm. Was with a friend when noted to have have acute vision loss on left side. Patient reports inability to see anything on his left side. Came to ED with initial neurologic exam for confusion, partial gaze palsy, partial hemianopia with limb ataxia as well as mild to moderate aphasia, mild to moderate dysarthria. NIHSS 7. Received TNK at 2021 on 05/02 and admitted to ICU. Currently the patient states symptoms are unchanged. No new complaints. [facility] Medical History (Updated 05/03/24 @ 09:[address] Andres Ivory MD) History of venous thromboembolism Tobacco use Osteoarthritis of left knee Radiculopathy due to disorder of intervertebral disc of lumbar spine Lower back pain Home Medications ?Medication ?Instructions ?Recorded ?Last Taken ?Type acetaminophen 650 mg 650 mg PO Q12H 08/08/22 Unknown History tablet,extended release (Tylenol 8 Hour) cholecalciferol (vitamin D3) 50 50 mcg PO DAILY 09/19/22 Unknown History mcg (2,000 unit) capsule apixaban 5 mg tablet (Eliquis) 5 mg PO BID PE 05/02/24 Unknown History Allergy/AdvReac Type Severity Reaction Status Date / Time No Known Allergies Allergy Verified 05/02/24 19:56 Family History Mother CVA (cerebral vascular accident) Father No problems noted. 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 substance use type: marijuana Vital Signs Vital Signs Vital Signs: 05/02/24 19:54 05/02/24 19:54 05/02/24 19:54 Temperature 98.2 F Temperature Source Oral Pulse Rate 87 87 87 Pulse Strength Respiratory Rate 17 16 16 Respiratory Effort Respiratory Depth Respiratory Pattern Blood Pressure 145/107 H 145/107 H 145/107 H Blood Pressure Mean 119 119 119 Blood Pressure Source Blood Pressure Position Blood Pressure Location Pulse Ox 99 99 99 Oxygen Delivery Method Room Air Room Air Room Air 05/02/24 20:00 05/02/24 20:15 05/02/24 20:25 Temperature Temperature Source Pulse Rate 85 81 Pulse Strength Respiratory Rate 21 H 18 Respiratory Effort Respiratory Depth Respiratory Pattern Blood Pressure 141/97 H 152/98 H Blood Pressure Mean 111 116 Blood Pressure Source Blood Pressure Position Blood Pressure Location Pulse Ox 98 99 Oxygen Delivery Method Room Air Room Air Room Air 05/02/24 20:30 05/02/24 20:30 05/02/24 20:45 Temperature 98.7 F Temperature Source Oral Pulse Rate 77 86 Pulse Strength Respiratory Rate 17 25 H Respiratory Effort Respiratory Depth Respiratory Pattern Blood Pressure 141/99 H 143/97 H 136/92 H Blood Pressure Mean 112 106 Blood Pressure Source Monitor Blood Pressure Position Semi-Fowlers Blood Pressure Location Left Arm Pulse Ox 99 97 Oxygen Delivery Method Room Air Room Air 05/02/24 21:00 05/02/24 21:00 05/02/24 21:15 Temperature 98 F 98 F 98.6 F Temperature Source Oral Oral Pulse Rate 88 88 79 Pulse Strength Respiratory Rate 21 H 21 H 16 Respiratory Effort Respiratory Depth Respiratory Pattern Blood Pressure 137/104 H 137/107 H 138/97 H Blood Pressure Mean 115 117 110 Blood Pressure Source Monitor Monitor Blood Pressure Position Semi-Fowlers Semi-Fowlers Blood Pressure Location Left Arm Left Arm Pulse Ox 97 97 96 Oxygen Delivery Method Room Air Room Air 05/02/24 21:30 05/02/24 21:45 05/02/24 21:55 Temperature 97 F L 97 F L Temperature Source Temporal Temporal Pulse Rate 84 93 79 Pulse Strength Respiratory Rate 24 H 14 17 Respiratory Effort Respiratory Depth Respiratory Pattern Blood Pressure 148/97 H 114/102 H 114/102 H Blood Pressure Mean 114 106 106 Blood Pressure Source Monitor Monitor Blood Pressure Position Semi-Fowlers Blood Pressure Location Left Arm Pulse Ox 96 99 98 Oxygen Delivery Method Room Air Room Air Room Air 05/02/24 22:00 05/02/24 22:00 05/02/24 22:10 Temperature Temperature Source Pulse Rate 80 82 Pulse Strength Respiratory Rate 18 24 H Respiratory Effort Normal Non-Labored Respiratory Depth Normal Respiratory Pattern Normal Blood Pressure 132/96 H 142/97 H Blood Pressure Mean 108 112 Blood Pressure Source Monitor Blood Pressure Position Blood Pressure Location Pulse Ox 98 99 98 Oxygen Delivery Method Room Air Room Air Room Air 05/02/24 22:15 05/02/24 22:25 05/02/24 22:30 Temperature Temperature Source Pulse Rate 82 82 82 Pulse Strength Respiratory Rate 24 H 18 18 Respiratory Effort Respiratory Depth Respiratory Pattern Blood Pressure 142/97 H 132/97 H 132/97 H Blood Pressure Mean 112 108 108 Blood Pressure Source Monitor Monitor Blood Pressure Position Blood Pressure Location Pulse Ox 98 99 99 Oxygen Delivery Method Room Air Room Air Room Air 05/02/24 22:30 05/02/24 22:40 05/02/24 22:55 Temperature Temperature Source Pulse Rate 82 84 84 Pulse Strength Respiratory Rate 18 18 24 H Respiratory Effort Respiratory Depth Respiratory Pattern Blood Pressure 132/97 H 134/94 H 142/97 H Blood Pressure Mean 108 107 112 Blood Pressure Source Blood Pressure Position Blood Pressure Location Pulse Ox 99 99 98 Oxygen Delivery Method Room Air Room Air Room Air 05/02/24 23:00 05/02/24 23:10 05/02/24 23:25 Temperature 97 F L Temperature Source Temporal Pulse Rate 83 83 80 Pulse Strength Respiratory Rate 14 14 26 H Respiratory Effort Respiratory Depth Respiratory Pattern Blood Pressure 134/94 H 134/94 H 149/99 H Blood Pressure Mean 107 107 115 Blood Pressure Source Monitor Blood Pressure Position Semi-Fowlers Blood Pressure Location Left Arm Pulse Ox 100 100 99 Oxygen Delivery Method Room Air Room Air Room Air 05/02/24 23:30 05/02/24 23:55 05/03/24 00:10 Temperature Temperature Source Pulse Rate 80 82 82 Pulse Strength Respiratory Rate 22 H 22 H 26 H Respiratory Effort Respiratory Depth Respiratory Pattern Blood Pressure 149/99 H 122/87 H 122/87 H Blood Pressure Mean 115 98 98 Blood Pressure Source Monitor Monitor Blood Pressure Position Blood Pressure Location Pulse Ox 99 99 99 Oxygen Delivery Method Room Air Room Air Room Air 05/03/24 00:40 05/03/24 01:10 05/03/24 01:40 Temperature Temperature Source Pulse Rate 86 82 85 Pulse Strength Respiratory Rate 17 20 H 19 H Respiratory Effort Respiratory Depth Respiratory Pattern Blood Pressure 129/82 H 132/88 H 124/73 H Blood Pressure Mean 97 102 90 Blood Pressure Source Monitor Monitor Blood Pressure Position Blood Pressure Location Pulse Ox 98 98 97 Oxygen Delivery Method Room Air Room Air Room Air 05/03/24 02:00 05/03/24 02:10 05/03/24 02:40 Temperature 97.4 F L Temperature Source Temporal Pulse Rate 85 85 Pulse Strength Respiratory Rate 19 H 17 Respiratory Effort Normal Non-Labored Respiratory Depth Normal Respiratory Pattern Normal Blood Pressure 124/73 H 129/84 H Blood Pressure Mean 90 99 Blood Pressure Source Monitor Monitor Blood Pressure Position Blood Pressure Location Pulse Ox 97 97 97 Oxygen Delivery Method Room Air Room Air Room Air 05/03/24 03:10 05/03/24 03:40 05/03/24 04:10 Temperature Temperature Source Pulse Rate 85 73 80 Pulse Strength Respiratory Rate 17 18 17 Respiratory Effort Respiratory Depth Respiratory Pattern Blood Pressure 129/84 H 134/92 H 126/96 H Blood Pressure Mean 99 106 106 Blood Pressure Source Monitor Monitor Monitor Blood Pressure Position Blood Pressure Location Pulse Ox 97 97 96 Oxygen Delivery Method Room Air Room Air Room Air 05/03/24 04:45 05/03/24 05:10 05/03/24 06:00 Temperature 97.8 F Temperature Source Temporal Pulse Rate 90 92 Pulse Strength Respiratory Rate 26 H 26 H Respiratory Effort Normal Non-Labored Respiratory Depth Normal Respiratory Pattern Normal Blood Pressure 127/85 H 127/85 H Blood Pressure Mean 99 99 Blood Pressure Source Monitor Monitor Blood Pressure Position Blood Pressure Location Pulse Ox 95 95 96 Oxygen Delivery Method Room Air Room Air Room Air 05/03/24 06:10 05/03/24 06:40 05/03/24 07:10 Temperature 97.8 F Temperature Source Temporal Pulse Rate 76 77 81 Pulse Strength Respiratory Rate 17 17 16 Respiratory Effort Respiratory Depth Respiratory Pattern Blood Pressure 127/94 H 129/87 H 137/103 H Blood Pressure Mean 105 101 114 Blood Pressure Source Monitor Monitor Blood Pressure Position Semi-Fowlers Blood Pressure Location Left Arm Pulse Ox 96 96 97 Oxygen Delivery Method Room Air Room Air Room Air 05/03/24 08:10 05/03/24 09:10 05/03/24 09:39 Temperature 98.1 F Temperature Source Temporal Pulse Rate 76 77 Pulse Strength Respiratory Rate 17 21 H Respiratory Effort Respiratory Depth Respiratory Pattern Blood Pressure 133/94 H 122/88 H Blood Pressure Mean 107 99 Blood Pressure Source Monitor Monitor Blood Pressure Position Semi-Fowlers Semi-Fowlers Blood Pressure Location Left Arm Left Arm Pulse Ox 97 97 96 Oxygen Delivery Method Room Air Room Air Room Air 05/03/24 10:00 05/03/24 10:10 05/03/24 11:10 Temperature Temperature Source Pulse Rate 75 75 Pulse Strength Normal (2+) Respiratory Rate 20 H 17 Respiratory Effort Respiratory Depth Respiratory Pattern Blood Pressure 133/94 H 139/98 H Blood Pressure Mean 107 111 Blood Pressure Source Monitor Monitor Blood Pressure Position Semi-Fowlers Semi-Fowlers Blood Pressure Location Left Arm Left Arm Pulse Ox 96 96 Oxygen Delivery Method Room Air Room Air 05/03/24 12:10 05/03/24 13:10 Temperature 97.5 F L Temperature Source Temporal Pulse Rate 85 80 Pulse Strength Respiratory Rate 16 17 Respiratory Effort Respiratory Depth Respiratory Pattern Blood Pressure 123/96 H 121/89 H Blood Pressure Mean 105 99 Blood Pressure Source Monitor Monitor Blood Pressure Position Semi-Fowlers Semi-Fowlers Blood Pressure Location Left Arm Left Arm Pulse Ox 97 95 Oxygen Delivery Method Room Air Room Air Weight Weight: 82.9 kg Body Mass Index (BMI) 28.6 EEG Results Procedure Details EEG Procedure Details: TUSHAR ESTEBAN is a 54 year old M with a past medical history of , who presents for evaluation of Electroencephalogram on DATE at TIME NIHSS NIHSS Nursing Documentation NIHSS Nursing Documentation: Thrombolytic: Vital Signs & NIHSS Start: 05/02/24 20:21 Text: Assess and document vital signs and NIHSS Status: Active within 15 minutes of tenecteplase bolus administration Freq: [id number],Q2H Protocol: Activity Type Activity Date Activity User E-sign Co-sign Detail Recorded Client Recorded Date Recorded By Document 05/03/24 13:10 [facility] .10.25.7 05/03/24 13:20 [facility] 05/03/24 13:10 Vital Signs [Pulse] -Pulse Rate (60-100) 80 -Pulse Location Monitor [Respirations] -Respiratory Rate (12-18) 17 -Respiratory rate source Monitor -Pulse Oximetry 95 -Oxygen Delivery Method Room Air [Blood Pressure] -Blood Pressure (90/60-120/80) 121/89 H -Blood Pressure Mean 99 -Source Monitor -Position Semi-Fowlers -Blood Pressure Location Left Arm -Is the SBP > or = 180 No -Is the DBP > or = 105 No NIH Stroke Scale [NIHSS] A score of 0 is normal or asymptomatic . Total possible score is 42. Inpatient: RN or Physician to activate a stroke alert for onset of new stroke symptoms or with NIHSS increase >/= 3 points. Following change in neurological status, NIHSS will be performed per physician order or more frequently PRN. -1a. Level of Consciousness Not alert; Arousable by minor stimuli to obey, answer & respond -1b. LOC Questions Answers BOTH questions correctly. -1c. LOC Commands Performs both tasks correctly . -2. Best Gaze Normal -3. Visual Complete hemianopia -4. Facial Palsy Minor paralysis (flattened nasolabial fold , asymmetry on smiling) -5a. Left Arm No drift; arm holds 90 (or 45 ) degrees for full 10 seconds -5b. Right Arm No drift; arm holds 90 (or 45 ) degrees for full 10 seconds -6a. Left Leg No drift; leg holds 30-degree position for full 5 seconds -6b. Right Leg No drift; leg holds 30-degree position for full 5 seconds -7. Limb Ataxia Present in 1 limb -8. Sensory Normal; no sensory loss -9. Best Language Mild-to- moderate aphasia; -10. Dysarthria Mild-to- moderate dysarthria; -11. Extinction and Inattention No abnormality -Total 7 Query Text:A score of 0 is normal or asymptomatic. Total possible score is 42 . ED: Notify Physician for NIHSS increase by > / = 3 points. Inpatient: RN or Physician to activate a stroke alert for NIHSS increase of > / = 3 points. Physical Exam Narrative Exam MS: awake, alert, oriented x 3, follows commands, able to name, mild expressive difficiulty, difficulty with naming, word finding, no dysarthria CN: left homonymous hemianopsia, ?EOMI , no facial weakness, nml facial sensation M:? Antigravity in all extremities, no drift S: nml to LT in all extremities C: no dysmetria Lab / Micro Data 05/03/24 03:55 05/03/24 03:55 Labs: Laboratory Results - last 24 hr 05/02/24 19:55: WBC 13.7 H, RBC 3.91 L, Hgb 12.4 L, Hct 37.3 L, MCV 95.4 H, MCH 31.7, MCHC 33.2, RDW Std Deviation 43.9, RDW Coeff of Roxana 12.6, Plt Count 196, MPV 9.4, Immature Gran % (Auto) 0.300, Neut % (Auto) 84.3 H, Lymph % (Auto) 7.7 L, Benzie % (Auto) 6.1, Eos % (Auto) 1.2, Baso % (Auto) 0.4, Absolute Neuts (auto) 11.6 H, Absolute Lymphs (auto) 1.05, Nucleated RBC % 0, PT 14.7, INR 1.2, APTT 25.5, Sodium 139, Potassium 4.3, Chloride 111 H, Carbon Dioxide 24.0, Anion Gap 4 L, BUN 15, Creatinine 1.02, Estim Creat Clear Calc 83.11, Est GFR (MDRD) Af Amer 97, Est GFR (MDRD) Non-Af 80, BUN/Creatinine Ratio 14.7, Glucose 101, Calcium 8.7, Phosphorus 2.0 L, Magnesium 2.0, Troponin I High Sens 1342 H* 05/02/24 20:20: POC Glucose 83 05/02/24 20:36: Urine Opiates Screen NEGATIVE, Urine Methadone Screen NEGATIVE, Ur Barbiturates Screen NEGATIVE, Ur Phencyclidine Scrn NEGATIVE, Ur Amphetamines Screen POSITIVE H, MDMA (Ecstasy) Screen POSITIVE H, U Benzodiazepines Scrn NEGATIVE, Urine Cocaine Screen NEGATIVE, U Cannabinoids Screen NEGATIVE, Ur Drug Screen Comment 05/02/24 21:59: POC Glucose 103 05/03/24 03:55: WBC 10.8, RBC 3.66 L, Hgb 11.7 L, Hct 34.7 L, MCV 94.8 H, MCH 32.0, MCHC 33.7, RDW Std Deviation 44.1 H, RDW Coeff of Roxana 12.7, Plt Count 197, MPV 9.6, Immature Gran % (Auto) 0.400, Neut % (Auto) 73.5 H, Lymph % (Auto) 14.4 L, Benzie % (Auto) 9.0, Eos % (Auto) 2.2, Baso % (Auto) 0.5, Absolute Neuts (auto) 7.9 H, Absolute Lymphs (auto) 1.55, Nucleated RBC % 0, Sodium 136, Potassium 3.8, Chloride 107, Carbon Dioxide 22.0, Anion Gap 7, BUN 11, Creatinine 0.88, Estim Creat Clear Calc 96.54, Est GFR (MDRD) Af Amer 115, Est GFR (MDRD) Non-Af 95, BUN/Creatinine Ratio 12.5, Glucose 97, Hemoglobin A1c 5.3, Calcium 8.8, Iron 59 L, TIBC 271, Iron Saturation 21.8, Ferritin 244, Total Bilirubin 0.60, AST 19, ALT 22, Alkaline Phosphatase 100, Troponin I High Sens 2437 H*, Total Protein 6.5, Albumin 3.3, Globulin 3.2, Albumin/Globulin Ratio 1.0, Triglycerides 123, Cholesterol 198, LDL Cholesterol 139 H, VLDL Cholesterol 25, HDL Cholesterol 34 L, Folate 5.90, TSH 2.960 05/03/24 05:20: Troponin I High Sens 1939 H*, Vitamin B12 247 05/03/24 10:50: Troponin I High Sens 906 H* Micro: Microbiology 05/03/24 00:15 Mucosa - Nasopharyngeal Respiratory Panel (PCR) - Final Rhythm Strip Rhythm Strip: Sinus Rhythm Rate: 80 Ectopy: PVC(s), PAC(s) and - (No atrial fib documented.) Imaging Radiology Impression Head/Neck CTA 05/02/24 19:55 IMPRESSION: Negative CTA carotid and CTA brain. Electronically Signed: Tarik Aviles DO at 20:27 EDT , ADDENDUM: 05/02/242034 IMPRESSION: Negative CTA carotid and CTA brain. N.B. : The above Results were Read Back by Tarik Aviles DO to Salvatore Hamm MD, and understanding confirmed on 05/02/2024 20:28:06 (ET). Electronically Signed: Tarik VLayton Aviles DO at 20:27 EDT , Brain CT 05/02/24 20:02 IMPRESSION: No evidence of acute intracranial pathology. Specifically, no infarct or hemorrhage. ASPECTS: 10. N.B. : The above Results were Read Back by Tarik Aviles DO to Salvatore Hamm MD, and understanding confirmed on 05/02/2024 20:15:32 (ET). Electronically Signed: Tarik Aviles DO at 20:14 EDT , ADDENDUM: 05/02/242021 IMPRESSION: No evidence of acute intracranial pathology. Specifically, no infarct or hemorrhage. ASPECTS: 10. N.B. : The above Results were Read Back by Tarik Aviles DO to Salvatore Hamm MD, and understanding confirmed on 05/02/2024 20:15:32 (ET). Electronically Signed: Tarik VLayton Aviles DO at 20:14 EDT , Chest X-Ray 05/02/24 20:50 IMPRESSION: No acute findings in the chest. Electronically Signed: Tarikstone Aviles DO at 21:05 EDT , Echocardiogram 05/02/24 22:04 Interpretation Summary Normal LV size. Left ventricular systolic function is normal. The left ventricular ejection fraction is 60 %. Bubble contrast study negative for right to left interatrial shunt. Stage 1 diastolic dysfunction. Ordering Physician: Irina Couch Performed By: Renu Braxton RDCS and Student Brain CT 05/02/24 22:05 IMPRESSION: Normal unenhanced CT scan of the brain. N.B. : The above Results were Read Back by Roney Charles MD to Irina Couch MD, and understanding confirmed on 05/02/2024 22:29:23 (ET). Electronically Signed: Roney Charles MD at 22:30 EDT , ADDENDUM: 05/02/242236 IMPRESSION: Normal unenhanced CT scan of the brain. N.B. : The above Results were Read Back by Roney Charles MD to Irina Couch MD, and understanding confirmed on 05/02/2024 22:29:23 (ET). Electronically Signed: Roney Charles MD at 22:30 EDT , Active Medications Active Medications Active Medications: Current Medications Generic Name Dose Route Start Last Admin Trade Name Freq PRN Reason Stop Dose Admin Acetaminophen 650 mg 05/02/24 20:21 Acetaminophen 325 Mg Tablet PO X1 PRN Temp > 99.6 F Acetaminophen 650 mg 05/02/24 22:04 05/03/24 09:36 Acetaminophen 325 Mg Tablet PO 650 mg Q4H PRN PRN Administration Fever, pain 1-10 Al Hydrox/Mg Hydrox/Simethicone 30 ml 05/02/24 22:04 Mag /Aluminum/Simeth Wch Udc 30 Ml Oral.Susp PO Q6H PRN PRN Gastric Burning Albuterol Sulfate 2.5 mg 05/02/24 22:04 Albuterol 2.5 Mg/3 Ml Vial.Neb. INHALATION Q2H PRN PRN Dyspnea, wheezing Atorvastatin Calcium 80 mg 05/02/24 22:04 05/03/24 00:58 Atorvastatin Calcium 80 Mg Tablet PO 80 mg QHS LIZA Administration Guaifenesin 10 ml 05/02/24 22:04 Guaifenesin 10 Ml Udc (200mg/10ml) PO Q4H PRN PRN COUGH Nicardipine/Sodium Chloride 20 mg in 200 mls @ 50 mls/hr 05/02/24 22:04 05/03/24 09:31 Cardene-Avery 20 Mg/200 Ml Soln CONT INF 05/03/24 22:04 Not Given Q4H LIZA Protocol 5 MG/HR Sodium Chloride 250 mls @ 15 mls/hr 05/02/24 23:26 IV .[id number] PRN Additional IVPB Infusion Sodium Chloride 250 mls @ 15 mls/hr 05/02/24 23:26 IV .[id number] PRN Saline Flush Pantoprazole Sodium 40 mg/ 110 mls @ 330 mls/hr 05/03/24 10:00 05/03/24 11:16 Sodium Chloride IV Infused Q24 LIZA Infusion Melatonin 3 mg 05/02/24 22:04 Melatonin 3 Mg Tablet PO QHS PRN PRN INSOMNIA Ondansetron HCl 4 mg 05/02/24 22:04 Ondansetron 4 Mg/2 Ml Vial IV Q8H PRN PRN NAUSEA/VOMITING Prochlorperazine Edisylate 5 mg 05/02/24 22:04 Prochlorperazine 10 Mg/2 Ml Vial IV Q4H PRN PRN Breakthrough Nausea/Vomiting Senna/Docusate Sodium 2 tablet 05/02/24 22:04 Senna/Docusate Sodium 1 Tablet PO BID PRN PRN Constipation Sodium Chloride 10 - 40 ml 05/02/24 23:26 0.9% Saline Lock 10 Ml Syringe IV UD PRN SALINE FLUSH
--- NOTE | 2024-05-03 20:00 | CT_ITS ---
ACR Level 3 findings have been noted. An addendum which confirms receipt of the report will follow. EXAM: CT HEAD WITHOUT INTRAVENOUS CONTRAST CLINICAL INDICATION: Followup TNK administration w/ CVA TECHNIQUE: Multiple axial images were obtained of the head without intravenous contrast. This CT exam was performed using one or more of the following dose reduction techniques: automated exposure control, adjustment of the mA and/or kV according to patient size, and/or use of iterative reconstruction technique. COMPARISON: 05/02/2024 FINDINGS: BRAIN AND EXTRA-AXIAL SPACES: Wedge-shaped area of hypoattenuation in the posterior right parietal lobe and wedge-shaped area in the right lateral occipital lobe consistent with evolving acute infarct. No evidence of acute intracranial hemorrhage. No intracranial mass or significant mass effect. No shift of midline structures. No hydrocephalus. Patent basal cisterns. BONES/JOINTS: Bilateral TMJ arthrosis. No discrete lytic or blastic abnormalities. VASCULATURE: Calcification along the course of the right middle cerebral artery correlating with prior examination indicating arteriosclerosis. SINUSES: Minimal mucosal thickening in the paranasal sinuses. MASTOID AIR CELLS: No significant effusion. ORBITS: No acute findings. DENTAL: Partially visualized moderate dental disease. CT/Brain/Head without Contrast IMPRESSION: 1. Wedge-shaped area of hypoattenuation in the posterior right parietal lobe and wedge-shaped area in the right lateral occipital lobe consistent with evolving acute infarct. 2. No evidence of acute intracranial hemorrhage. Electronically Signed: Tarik Aviles DO at 20:33 EDT ,
[2024-05-04] VITALS (13 sets, daily range): BP systolic 110–131; BP diastolic 69–91; PULSE 68–92; RESP 14–19; TEMP 36.5–37.3; O2SAT 92–98; BMI 27.8
[2024-05-04 04:17] LABS: Absolute Lymphocyte Count 1.46 X10^3/uL (0.83-4.51); Absolute Neutrophil Count 8.4 X10^3/uL (2.0-7.7); Basophil# 0.04 X10^3/uL; Basophil% 0.4 % (0-1); Eosinophil# 0.24 X10^3/uL; Eosinophils% 2.1 % (0-5); Hematocrit 36.2 % (40-54); Hemoglobin 11.9 g/dL (13.0-16.5); Lymphocyte # 1.46 X10^3/ul (0.83-4.51); Mean Corp Hgb Conc 32.9 g/dL (32-36); Mean Corpuscular Hgb 31.3 pg (27.0-32.0); Mean Corpuscular Volume 95.3 fL (80-94); Mean Platelet Vol. 9.4 fl (6.2-12.0); Monocyte# 0.97 X10^3/uL; Monocyte% 8.7 % (0-10); NRBC Flagged by Analyzer 0 % (0-5); Neutrophil # 8.43 X10^3/uL (2.7-7.7); Neutrophil % 75.4 % (47-70); Platelet Count 222 K/mm3 (150-450); RBC Distribution Width CV 12.7 % (11.6-14.6); RBC Distribution Width SD 44.2 fl (35.1-43.9); White Blood Count 11.2 K/mm3 (4.4-11.0)
[2024-05-04 04:30] LABS: Anion Gap 6 (5-15); BUN 8 mg/dL (7-18); BUN/Creat Ratio 8.6 RATIO (10-20); Calcium,Total 9.1 mg/dL (8.5-10.1); Chloride 108 mmol/L (98-107); Creatinine, Serum 0.93 mg/dL (0.70-1.30); EST Glomerular Filtration Rate 89 mL/min (>60); Est Glom Filt Rate - Afr Amer 108 mL/min (>60); Estimated Creatinine Clearance 91.35 ml/min; Glucose 95 mg/dL (74-106); Potassium 3.7 mmol/L (3.5-5.1); Sodium Level 137 mmol/L (136-145)
--- NOTE | 2024-05-04 06:56 | PCM.PN.INT ---
Assessment & Plan Assessment/Plan (1) Left homonymous hemianopsia: PLAN: Plan RECOMMENDATIONS: 1. Proceed with MRI brain. 2. Initiate systemic anticoagulation once okay with neurology. 3. Hypercoagulable workup per hospitalist. 4. The patient is medically stable for transfer out of the intensive care unit. Will sign off accordingly. IMPRESSIONS: 1. Acute CVA status post tenecteplase Continue routine monitoring per protocol. Tentative plans for MRI brain today. Recommend neurology follow-up. 2. NSTEMI Cardiology following. Echocardiogram was unremarkable. 3. Lower extremity DVTs Initiate systemic anticoagulation, once okay from neurology. This note was generated with [employer] dictation software. It may contain incorrect words, spelling, and punctuation that were not noted in checking the note before signing. Subjective Subjective The patient was seen and examined at the bedside this morning. Events from the last 24 hours have been reviewed. The patient is currently afebrile, hemodynamically stable and maintaining appropriate oxygen saturations on room air. Follow-up CT head completed last evening demonstrated evolving acute infarct in the posterior right parietal lobe. Morning labs are otherwise stable. The patient has no complaints this morning. Objective Data Objective Data The patient's most recent lab work, culture data and imaging studies have all been personally reviewed. Vital Signs: Vital Signs Temp Pulse Resp BP Pulse Ox O2 Del Method 98 F 83 17 122/76 H 95 Room Air 05/04/24 06:00 05/04/24 06:00 05/04/24 06:00 05/04/24 06:00 05/04/24 06:00 05/04/24 06:00 Oxygen Delivery Method Room Air Weight: 177 lb 7.554 oz Body Mass Index (BMI) 27.8 Intake & Output: Intake and Output for Last 24 Hours 05/02/24 05/03/24 05/04/24 23:59 23:59 23:59 Intake Total 800 / 800 0 / 0 Output Total 3900 / 3900 600 / 600 Balance 800 / -200 -1850 / -1850 -600 / -600 Lab / Micro Data Attestation: I reviewed the patient's lab results. 05/04/24 04:10 05/04/24 04:10 Labs: Laboratory Results - last 24 hr 05/03/24 03:55: Hemoglobin A1c 5.3 05/03/24 05:20: Vitamin B12 247 05/03/24 10:50: Troponin I High Sens 906 H* 05/04/24 04:10: WBC 11.2 H, RBC 3.80 L, Hgb 11.9 L, Hct 36.2 L, MCV 95.3 H, MCH 31.3, MCHC 32.9, RDW Std Deviation 44.2 H, RDW Coeff of [place]ox[place] 12.7, Plt Count 222, MPV 9.4, Immature Gran % (Auto) 0.400, Neut % (Auto) 75.4 H, Lymph % (Auto) 13.0 L, [place] % (Auto) 8.7, Eos % (Auto) 2.1, Baso % (Auto) 0.4, Absolute Neuts (auto) 8.4 H, Absolute Lymphs (auto) 1.46, Nucleated RBC % 0, Sodium 137, Potassium 3.7, Chloride 108 H, Carbon Dioxide 23.0, Anion Gap 6, BUN 8, Creatinine 0.93, Estim Creat Clear Calc 91.35, Est GFR (MDRD) Af Amer 108, Est GFR (MDRD) Non-Af 89, BUN/Creatinine Ratio 8.6 L, Glucose 95, Calcium 9.1 Micro: Microbiology 05/03/24 00:15 Mucosa - Nasopharyngeal Respiratory Panel (PCR) - Final Radiography Diagnostic Testing: Radiology Impression Venous Doppler Study 05/02/24 20:53 Interpretation Summary Acute deep vein thrombosis is noted in the right popliteal vein, tibioperoneal trunk vein, posterior tibial vein, peroneal vein, gastrocnemius vein. Acute deep vein thrombosis is noted in the left gastrocnemius vein. Acute superficial vein thrombosis is noted in the left great saphenous vein. Ordering Physician: Irina Couch Referring Physician: Leda Alcantara Performed By: Romina Ron RVT Echocardiogram 05/02/24 22:04 Interpretation Summary Normal LV size. Left ventricular systolic function is normal. The left ventricular ejection fraction is 60 %. Bubble contrast study negative for right to left interatrial shunt. Stage 1 diastolic dysfunction. Ordering Physician: Irina Couch Performed By: Renu Braxton RDCS and Student Brain CT 05/03/24 20:00 IMPRESSION: 1. Wedge-shaped area of hypoattenuation in the posterior right parietal lobe and wedge-shaped area in the right lateral occipital lobe consistent with evolving acute infarct. 2. No evidence of acute intracranial hemorrhage. Electronically Signed: Tarik Aviles DO at 20:33 EDT , ADDENDUM: 05/03/242058 IMPRESSION: 1. Wedge-shaped area of hypoattenuation in the posterior right parietal lobe and wedge-shaped area in the right lateral occipital lobe consistent with evolving acute infarct. 2. No evidence of acute intracranial hemorrhage. N.B. : Mumtaz Okeefe RN, confirmed on 05/03/2024 20:52:10 (ET) that the healthcare facility has received the radiology report. Electronically Signed: Tarik Aviles DO at 20:33 EDT , Rhythm Strip Rhythm Strip: Sinus Rhythm Rate: 80 Ectopy: PVC(s), PAC(s) and - (No atrial fib documented.) Physical Exam Const alert and no apparent distress General Appearance: cooperative HEENT normocephalic and head/scalp atraumatic Eyes PERRL, EOMs intact bilaterally and conjunctivae normal Neck supple General: trachea midline Chest inspection of chest normal Resp normal respiratory effort Auscultation: Negative for rales, rhonchi or wheezes Cardio regular rate and regular rhythm GI normal to inspection, nondistended, normoactive bowel sounds Extremity no clubbing, cyanosis or edema Skin no rashes or lesions noted Neuro oriented x3 and no focal motor deficits Psych cooperative and affect normal Charges/Coding Visit Charges Inpatient E&M: 87212 Subs Hosp L2
--- NOTE | 2024-05-04 07:15 | PCM.PN.HOSP ---
Reason for Visit Reason for Visit: Diagnoses Homonymous bilateral field defects, left side (05/02/24) Elevated blood-pressure reading, without diagnosis of hypertension (05/02/24) Other specified abnormal findings of blood chemistry (05/02/24) Personal history of other venous thrombosis and embolism (05/02/24) Subjective Subjective Feeling better. Objective Data Objective Data Vital Signs: Vital Signs Temp Pulse Resp BP Pulse Ox O2 Del Method 36.6 C 83 17 122/76 H 95 Room Air 05/04/24 06:00 05/04/24 06:00 05/04/24 06:00 05/04/24 06:00 05/04/24 06:00 05/04/24 06:00 Oxygen Delivery Method Room Air Weight: 80.5 kg Body Mass Index (BMI) 27.8 Intake & Output: Intake and Output for Last 24 Hours 05/02/24 05/03/24 05/04/24 23:59 23:59 23:59 Intake Total 800 / 800 2050 / 2050 Output Total 3900 / 3900 600 / 600 Balance 800 / -200 -1850 / -1850 -600 / -600 Lab / Micro Data 05/04/24 04:10 05/04/24 04:10 Labs: Laboratory Results - last 24 hr 05/03/24 03:55: Hemoglobin A1c 5.3 05/03/24 05:20: Vitamin B12 247 05/03/24 10:50: Troponin I High Sens 906 H* 05/04/24 04:10: WBC 11.2 H, RBC 3.80 L, Hgb 11.9 L, Hct 36.2 L, MCV 95.3 H, MCH 31.3, MCHC 32.9, RDW Std Deviation 44.2 H, RDW Coeff of Roxana 12.7, Plt Count 222, MPV 9.4, Immature Gran % (Auto) 0.400, Neut % (Auto) 75.4 H, Lymph % (Auto) 13.0 L, [place] % (Auto) 8.7, Eos % (Auto) 2.1, Baso % (Auto) 0.4, Absolute Neuts (auto) 8.4 H, Absolute Lymphs (auto) 1.46, Nucleated RBC % 0, Sodium 137, Potassium 3.7, Chloride 108 H, Carbon Dioxide 23.0, Anion Gap 6, BUN 8, Creatinine 0.93, Estim Creat Clear Calc 91.35, Est GFR (MDRD) Af Amer 108, Est GFR (MDRD) Non-Af 89, BUN/Creatinine Ratio 8.6 L, Glucose 95, Calcium 9.1 Micro: Microbiology 05/03/24 00:15 Mucosa - Nasopharyngeal Respiratory Panel (PCR) - Final Radiography Diagnostic Testing: Radiology Impression Venous Doppler Study 05/02/24 20:53 Interpretation Summary Acute deep vein thrombosis is noted in the right popliteal vein, tibioperoneal trunk vein, posterior tibial vein, peroneal vein, gastrocnemius vein. Acute deep vein thrombosis is noted in the left gastrocnemius vein. Acute superficial vein thrombosis is noted in the left great saphenous vein. Ordering Physician: Irina Couch Referring Physician: Leda Alcantara Performed By: Romina Ron RVT Echocardiogram 05/02/24 22:04 Interpretation Summary Normal LV size. Left ventricular systolic function is normal. The left ventricular ejection fraction is 60 %. Bubble contrast study negative for right to left interatrial shunt. Stage 1 diastolic dysfunction. Ordering Physician: Irina Couch Performed By: Renu Braxton RDCS and Student Brain CT 05/03/24 20:00 IMPRESSION: 1. Wedge-shaped area of hypoattenuation in the posterior right parietal lobe and wedge-shaped area in the right lateral occipital lobe consistent with evolving acute infarct. 2. No evidence of acute intracranial hemorrhage. Electronically Signed: Tarik Aviles DO at 20:33 EDT , ADDENDUM: 05/03/242058 IMPRESSION: 1. Wedge-shaped area of hypoattenuation in the posterior right parietal lobe and wedge-shaped area in the right lateral occipital lobe consistent with evolving acute infarct. 2. No evidence of acute intracranial hemorrhage. N.B. : Mumtaz Okeefe RN, confirmed on 05/03/2024 20:52:10 (ET) that the healthcare facility has received the radiology report. Electronically Signed: Tarik Aviles DO at 20:33 EDT , Rhythm Strip Rhythm Strip: Sinus Rhythm Rate: 80 Ectopy: PVC(s), PAC(s) and - (No atrial fib documented.) Physical Exam Const alert and no apparent distress HEENT head/scalp atraumatic and moist oral mucous membranes Eyes PERRL and EOMs intact bilaterally Extremity normal to inspection and no clubbing, cyanosis or edema Neuro oriented x3, CN's II-XII intact bilaterally, moves all extremities and no focal motor deficits Neuro Narrative: impaired left lateral visual field deficits. Motor Exam: strength 5/5 throughout Assessment & Plan Assessment/Plan (1) Left homonymous hemianopsia: PLAN: Plan Acute CVA sp TNK on 05/02 MRI brain, echo, PT OT. Discussed with Dr. Hartman 05/03 of [facility] neurology: Recommends CT scan of the head in 24 hours post TNK. And if no bleeding, then would recommend aspirin. Also recommending hypercoagulable workup. Follow up CT showed Wedge-shaped area of hypoattenuation in the posterior right parietal lobe and wedge-shaped area in the right lateral occipital lobe. NSTEMI troponins peaked at 2437 echo: EF 60%. cards following DVTs Pulmonary duplex showed bilateral lower extremity DVTs. Discussed with neurology, they are recommending holding off on anticoagulation at this time until we get further imaging with CAT scan and MRI. 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 Patient documented as having been on apixaban for this but self discontinued because it was felt the medication was not needed. Chronic conditions: Tobacco Abuse: Encouraged cessation DVT prophylaxis: SCDs, defer chemoprophylaxis given tenecteplase usage. Full Code Charges/Coding Visit Charges Inpatient E&M: 69755 Subs Hosp L2
--- NOTE | 2024-05-04 08:11 | PN.CARD_ITS ---
Subjective Subjective Patient is resting comfortably in bed. He does report that his vision seems to be slightly improved from yesterday. I reviewed the echocardiogram with the patient showing that there is no PFO his LV function is normal ejection fraction of 60% with no wall motion abnormalities. There is no significant valvular heart disease documented. His telemetry has not shown any atrial fibrillation or significant arrhythmias since his admission. Remains in sinus rhythm with a heart rate in the 70 to 80 bpm range. Objective Data Vital Signs: Vital Signs Temp Pulse Resp BP Pulse Ox O2 Del Method 97.7 F L 77 18 124/79 H 95 Room Air 05/04/24 07:00 05/04/24 07:00 05/04/24 07:00 05/04/24 07:00 05/04/24 07:00 05/04/24 07:00 Oxygen Delivery Method Room Air Weight: 177 lb 7.554 oz Body Mass Index (BMI) 27.8 Intake & Output: Intake and Output for Last 24 Hours 05/02/24 05/03/24 05/04/24 23:59 23:59 23:59 Intake Total 800 / 800 0 / 2050 Output Total 3900 / 3900 600 / 600 Balance 800 / -200 -1850 / -1850 -600 / -600 Lab / Micro Data Attestation: I reviewed the patient's lab results. 05/04/24 04:10 05/04/24 04:10 Labs: Laboratory Results - last 24 hr 05/03/24 03:55: Hemoglobin A1c 5.3 05/03/24 05:20: Vitamin B12 247 05/03/24 10:50: Troponin I High Sens 906 H* 05/04/24 04:10: WBC 11.2 H, RBC 3.80 L, Hgb 11.9 L, Hct 36.2 L, MCV 95.3 H, MCH 31.3, MCHC 32.9, RDW Std Deviation 44.2 H, RDW Coeff of Roxana 12.7, Plt Count 222, MPV 9.4, Immature Gran % (Auto) 0.400, Neut % (Auto) 75.4 H, Lymph % (Auto) 13.0 L, [place] % (Auto) 8.7, Eos % (Auto) 2.1, Baso % (Auto) 0.4, Absolute Neuts (auto) 8.4 H, Absolute Lymphs (auto) 1.46, Nucleated RBC % 0, Sodium 137, Potassium 3.7, Chloride 108 H, Carbon Dioxide 23.0, Anion Gap 6, BUN 8, Creatinine 0.93, Estim Creat Clear Calc 91.35, Est GFR (MDRD) Af Amer 108, Est GFR (MDRD) Non-Af 89, BUN/Creatinine Ratio 8.6 L, Glucose 95, Calcium 9.1 Rhythm Strip Rhythm Strip: Sinus Rhythm Rate: 80 Ectopy: PAC(s) and - (No atrial fib documented.) Cardiology Labs/Tests 05/03/24 03:55: Hemoglobin A1c 5.3 05/04/24 04:10: WBC 11.2 H, RBC 3.80 L, Hgb 11.9 L, Hct 36.2 L, MCV 95.3 H, MCH 31.3, MCHC 32.9, Plt Count 222, MPV 9.4, Immature Gran % (Auto) 0.400, Neut % (Auto) 75.4 H, Lymph % (Auto) 13.0 L, [place] % (Auto) 8.7, Eos % (Auto) 2.1, Baso % (Auto) 0.4, Absolute Neuts (auto) 8.4 H, Nucleated RBC % 0, Sodium 137, Potassium 3.7, Chloride 108 H, Carbon Dioxide 23.0, Anion Gap 6, BUN 8, Creatinine 0.93, Est GFR (MDRD) Af Amer 108, Est GFR (MDRD) Non-Af 89, B UN/Creatinine Ratio 8.6 L, Glucose 95, Calcium 9.1 Rhythm: EKG: ECHO: Stress Test: Cardiac Cath: PCI: CT Surgery: Holter monitor: EPS: PPM: CXR: Chest CT Scan: Radiography Diagnostic Testing: Radiology Impression Venous Doppler Study 05/02/24 20:53 Interpretation Summary Acute deep vein thrombosis is noted in the right popliteal vein, tibioperoneal trunk vein, posterior tibial vein, peroneal vein, gastrocnemius vein. Acute deep vein thrombosis is noted in the left gastrocnemius vein. Acute superficial vein thrombosis is noted in the left great saphenous vein. Ordering Physician: Irina Couch Referring Physician: Leda Alcantara Performed By: Romina Ron RVT Echocardiogram 05/02/24 22:04 Interpretation Summary Normal LV size. Left ventricular systolic function is normal. The left ventricular ejection fraction is 60 %. Bubble contrast study negative for right to left interatrial shunt. Stage 1 diastolic dysfunction. Ordering Physician: Irina Couch Performed By: Renu Braxton RDCS and Student Brain CT 05/03/24 20:00 IMPRESSION: 1. Wedge-shaped area of hypoattenuation in the posterior right parietal lobe and wedge-shaped area in the right lateral occipital lobe consistent with evolving acute infarct. 2. No evidence of acute intracranial hemorrhage. Electronically Signed: Tarik Aviles DO at 20:33 EDT , ADDENDUM: 05/03/242058 IMPRESSION: 1. Wedge-shaped area of hypoattenuation in the posterior right parietal lobe and wedge-shaped area in the right lateral occipital lobe consistent with evolving acute infarct. 2. No evidence of acute intracranial hemorrhage. N.B. : Mumtaz Okeefe RN, confirmed on 05/03/2024 20:52:10 (ET) that the healthcare facility has received the radiology report. Electronically Signed: Tarik Aviles DO at 20:33 EDT , Physical Exam Const alert HEENT normocephalic Neck no JVD and no carotid bruits Chest inspection of chest normal Resp normal respiratory effort and clear to auscultation bilaterally Cardio regular rate, regular rhythm, S1 normal heart sound, S2 normal heart sound, no murmurs, no rub and no gallops Extremity no pedal edema Assessment & Plan Assessment/Plan (1) Elevated troponin: PLAN: Patient's troponins appear to be secondary to demand ischemia. This is not consistent with a non-STEMI. His LV function is normal with no wall motion abnormality on his echo. The patient should be treated for presumed atherosclerotic disease with a target LDL cholesterol less than 70 control of his blood pressure avoidance of tobacco products. (2) Elevated blood-pressure reading without diagnosis of hypertension: PLAN: Blood pressure is adequately controlled on his current therapy. Will defer long-term management to the primary service. (3) History of venous thromboembolism: PLAN: Patient has significant DVTs as documented yesterday. Further treatment and long-term management per the primary service. (4) Left homonymous hemianopsia: PLAN: Patient reports that his vision is slightly better than yesterday. He is status post CVA of an uncertain etiology. The patient does not have a PFO on his echocardiogram. There has been no documentation of paroxysmal atrial fibrillation since his admission. But we are unaware of the rhythm he may have been in during his home environment. Following discharge long-term evaluation with a 30-day event recorder would be indicated. PLAN: Plan 1. Continue current neurologic therapy as indicated. 2. Long-term management of recurrent DVTs per the primary service. 3. Will follow-up with cardiology on a as needed basis. 4. Should the patient be documented to have atrial fibrillation in the future further cardiac therapy would be indicated and the patient should be reconsulted. Charges/Coding Visit Charges Inpatient E&M: 96441 Subs Hosp L2
[2024-05-04] MEDS: Acetaminophen 500 MG Tablet PO ×2 (08:19→19:58)
[2024-05-04] MEDS: 0.9% Saline Lock 10 ML Syringe IV (08:23)
--- NOTE | 2024-05-04 12:22 | CASEMGMT ---
Social Work SW met w/pt, pt completed PHQ-9 w/SW. Pt scored a 1, does not have indication of depression as per PHQ-9 at this time. Pt mentioned feeling down, but states it is because he is in the hospital, and states will go home tomorrow no matter what. No further social service needs anticipated at this time. BELEN Richard
[2024-05-04] MEDS: Pantoprazole Sodium 40 MG Tablet PO (12:43)
[2024-05-04] MEDS: Enoxaparin 40 MG/0.4 ML Syringe SC (17:11)
--- NOTE | 2024-05-04 19:20 | STROKE.CONS ---
Assessment and Plan: Stroke Assessment/Plan #multifocal infarcts -etiology suggestive of underlying hypercoaguable state vs cardiac source -s/p TNK. No hemorrhage on 24 hour imaging -start ASA 81 and chemical DVT Proph -May start therapeutic AC for DVT in 2 -3 days. Can stop ASA once started on AC. Prefer DOAC unless found to have APLS (coumadin is needed for APLS) -consider hematology consultation to evaluate for hypercoaguable state including APLS and underlying malignancy -follow up TTE with bubble result. No need for DAILY as patient will need to be anticoagulated regardless -30 day cardiac event monitor on discharge -continue atovastastatin -BP goal is normotenision -PT/OT/MOT[employer]PER[employer] -rec outpatiient follow up with neurology in 4-6 weeks form discharge HPI Consult Data Date of Consult: 05/04/24 HPI Narrative HPI Narrative: 54 yo M w PMH of prior DVT/PE off AC, tobacco presents with with difficulty seeing and speaking. Presented on 05/02 at 6pm. Was with a friend when noted to have have acute vision loss on left side. Patient reports inability to see anything on his left side. Came to ED with initial neurologic exam for confusion, partial gaze palsy, partial hemianopia with limb ataxia as well as mild to moderate aphasia, mild to moderate dysarthria. NIHSS 7. Received TNK at 2021 on 05/02 and admitted to ICU. Currently the patient states symptoms are unchanged. No new complaints tdoay. Feels improved. MRI brain and CTH completed. [facility], [facility] Medical History (Updated 05/03/24 @ 09:[address] nAdres Ivory MD) History of venous thromboembolism Tobacco use Osteoarthritis of left knee Radiculopathy due to disorder of intervertebral disc of lumbar spine Lower back pain Home Medications ?Medication ?Instructions ?Recorded ?Last Taken ?Type acetaminophen 650 mg 650 mg PO Q12H 08/08/22 Unknown History tablet,extended release (Tylenol 8 Hour) cholecalciferol (vitamin D3) 50 50 mcg PO DAILY 09/19/22 Unknown History mcg (2,000 unit) capsule apixaban 5 mg tablet (Eliquis) 5 mg PO BID PE 05/02/24 Unknown History Allergy/AdvReac Type Severity Reaction Status Date / Time No Known Allergies Allergy Verified 05/02/24 19:56 Family History Mother CVA (cerebral vascular accident) Father No problems noted. 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 substance use type: marijuana Vital Signs Vital Signs Vital Signs: 05/03/24 19:58 05/03/24 21:07 05/03/24 21:39 Temperature 97.7 F L 97.7 F L Temperature Source Temporal Temporal Pulse Rate 77 71 75 Respiratory Rate 19 H 17 Blood Pressure 126/90 H 126/90 H Blood Pressure Mean 102 102 Blood Pressure Source Monitor Monitor Blood Pressure Position Semi-Fowlers Semi-Fowlers Blood Pressure Location Left Arm Left Arm Pulse Ox 100 99 Oxygen Delivery Method Room Air Room Air 05/03/24 21:42 05/03/24 22:56 05/03/24 23:02 Temperature 97.7 F L 97.2 F L 97.4 F L Temperature Source Temporal Temporal Pulse Rate 72 74 98 Respiratory Rate 21 H 18 18 Blood Pressure 126/90 H 125/93 H 126/93 H Blood Pressure Mean 102 103 104 Blood Pressure Source Monitor Monitor Blood Pressure Position Semi-Fowlers Semi-Fowlers Blood Pressure Location Left Arm Left Arm Pulse Ox 95 97 Oxygen Delivery Method Room Air Room Air 05/03/24 23:52 05/04/24 01:07 05/04/24 02:00 Temperature 97.7 F L 98.7 F Temperature Source Temporal Temporal Pulse Rate 82 87 79 Respiratory Rate 16 18 Blood Pressure 152/94 H 123/82 H Blood Pressure Mean 113 95 Blood Pressure Source Monitor Blood Pressure Position Semi-Fowlers Blood Pressure Location Left Arm Pulse Ox 94 95 Oxygen Delivery Method Room Air Room Air 05/04/24 03:00 05/04/24 04:56 05/04/24 06:00 Temperature 97.7 F L 98 F 98 F Temperature Source Temporal Temporal Temporal Pulse Rate 84 72 81 Respiratory Rate 18 14 17 Blood Pressure 121/91 H 121/88 H 122/76 H Blood Pressure Mean 101 99 91 Blood Pressure Source Monitor Manual Blood Pressure Position Semi-Fowlers Blood Pressure Location Left Arm Left Arm Pulse Ox 96 94 95 Oxygen Delivery Method Room Air Room Air Room Air 05/04/24 06:00 05/04/24 07:00 05/04/24 07:00 Temperature 97.7 F L Temperature Source Temporal Pulse Rate 83 77 68 Respiratory Rate 18 Blood Pressure 124/79 H Blood Pressure Mean 94 Blood Pressure Source Monitor Blood Pressure Position Supine Blood Pressure Location Left Arm Pulse Ox 95 Oxygen Delivery Method Room Air 05/04/24 07:28 05/04/24 08:00 05/04/24 11:00 Temperature 99.1 F Temperature Source Temporal Pulse Rate 68 92 Respiratory Rate 19 H Blood Pressure 131/89 H Blood Pressure Mean 103 Blood Pressure Source Monitor Blood Pressure Position Semi-Fowlers Blood Pressure Location Left Arm Pulse Ox 95 94 Oxygen Delivery Method Room Air Room Air 05/04/24 12:00 05/04/24 17:07 Temperature 98.9 F 97.9 F Temperature Source Temporal Temporal Pulse Rate 89 81 Respiratory Rate 19 H 16 Blood Pressure 128/81 H 110/69 Blood Pressure Mean 96 82 Blood Pressure Source Monitor Monitor Blood Pressure Position Semi-Fowlers Sitting Blood Pressure Location Left Arm Left Arm Pulse Ox 92 98 Oxygen Delivery Method Room Air Room Air Weight Weight: 80.5 kg Body Mass Index (BMI) 27.8 EEG Results Procedure Details EEG Procedure Details: TUSHAR ESTEBAN is a 54 year old M with a past medical history of , who presents for evaluation of Electroencephalogram on DATE at TIME NIHSS NIHSS Nursing Documentation NIHSS Nursing Documentation: Thrombolytic: Vital Signs & NIHSS Start: 05/02/24 20:21 Text: Assess and document vital signs and NIHSS Status: Complete within 15 minutes of tenecteplase bolus administration Freq: [id number] Protocol: Activity Type Activity Date Activity User E-sign Co-sign Detail Recorded Client Recorded Date Recorded By Document 05/04/24 07:00 GRV [id number] 05/04/24 07:41 GRV 05/04/24 07:00 Vital Signs [Temperature Protocol: VS] -Temperature (97.8 F-99.1 F) 97.7 F L -Temperature Source Temporal [Pulse] -Pulse Rate (60-100) 77 -Pulse Location Monitor [Respirations] -Respiratory Rate (12-18) 18 -Respiratory rate source Monitor -Pulse Oximetry 95 -Oxygen Delivery Method Room Air [Blood Pressure] -Blood Pressure (90/60-120/80) 124/79 H -Blood Pressure Mean 94 -Source Monitor -Position Supine -Blood Pressure Location Left Arm -Is the SBP > or = 180 No -Is the DBP > or = 105 No NIH Stroke Scale [NIHSS] A score of 0 is normal or asymptomatic . Total possible score is 42. Inpatient: RN or Physician to activate a stroke alert for onset of new stroke symptoms or with NIHSS increase >/= 3 points. Following change in neurological status, NIHSS will be performed per physician order or more frequently PRN. -1a. Level of Consciousness Alert; keenly responsive -1b. LOC Questions Answers one question correctly. -1c. LOC Commands Performs both tasks correctly . -2. Best Gaze Normal -3. Visual Complete hemianopia -4. Facial Palsy Normal symmetrical movements -5a. Left Arm No drift; arm holds 90 (or 45 ) degrees for full 10 seconds -5b. Right Arm No drift; arm holds 90 (or 45 ) degrees for full 10 seconds -6a. Left Leg No drift; leg holds 30-degree position for full 5 seconds -6b. Right Leg No drift; leg holds 30-degree position for full 5 seconds -7. Limb Ataxia Absent -8. Sensory Normal; no sensory loss -9. Best Language Mild-to- moderate aphasia; -10. Dysarthria Normal -11. Extinction and Inattention No abnormality -Total 4 Query Text:A score of 0 is normal or asymptomatic. Total possible score is 42 . ED: Notify Physician for NIHSS increase by > / = 3 points. Inpatient: RN or Physician to activate a stroke alert for NIHSS increase of > / = 3 points. Physical Exam Narrative Exam MS: awake, alert, oriented x 3, follows commands, able to name, improveed speech no dysarthria CN: left homonymous hemianopsia, ?EOMI , no facial weakness, nml facial sensation M:? Antigravity in all extremities, no drift S: nml to LT in all extremities C: no dysmetria Lab / Micro Data 05/04/24 04:10 05/04/24 04:10 Labs: Laboratory Results - last 24 hr 05/04/24 04:10: WBC 11.2 H, RBC 3.80 L, Hgb 11.9 L, Hct 36.2 L, MCV 95.3 H, MCH 31.3, MCHC 32.9, RDW Std Deviation 44.2 H, RDW Coeff of Roxana 12.7, Plt Count 222, MPV 9.4, Immature Gran % (Auto) 0.400, Neut % (Auto) 75.4 H, Lymph % (Auto) 13.0 L, [place] % (Auto) 8.7, Eos % (Auto) 2.1, Baso % (Auto) 0.4, Absolute Neuts (auto) 8.4 H, Absolute Lymphs (auto) 1.46, Nucleated RBC % 0, Sodium 137, Potassium 3.7, Chloride 108 H, Carbon Dioxide 23.0, Anion Gap 6, BUN 8, Creatinine 0.93, Estim Creat Clear Calc 91.35, Est GFR (MDRD) Af Amer 108, Est GFR (MDRD) Non-Af 89, BUN/Creatinine Ratio 8.6 L, Glucose 95, Calcium 9.1 Rhythm Strip Rhythm Strip: Sinus Rhythm Rate: 80 Ectopy: PAC(s) and - (No atrial fib documented.) Imaging Radiology Impression Venous Doppler Study 05/02/24 20:53 Interpretation Summary Acute deep vein thrombosis is noted in the right popliteal vein, tibioperoneal trunk vein, posterior tibial vein, peroneal vein, gastrocnemius vein. Acute deep vein thrombosis is noted in the left gastrocnemius vein. Acute superficial vein thrombosis is noted in the left great saphenous vein. Ordering Physician: Irina Couch Referring Physician: Leda Alcantara Performed By: Romina Ron RVT Brain CT 05/03/24 20:00 IMPRESSION: 1. Wedge-shaped area of hypoattenuation in the posterior right parietal lobe and wedge-shaped area in the right lateral occipital lobe consistent with evolving acute infarct. 2. No evidence of acute intracranial hemorrhage. Electronically Signed: Tarik Aviles at 20:33 EDT , ADDENDUM: 05/03/24 2059 IMPRESSION: 1. Wedge-shaped area of hypoattenuation in the posterior right parietal lobe and wedge-shaped area in the right lateral occipital lobe consistent with evolving acute infarct. 2. No evidence of acute intracranial hemorrhage. N.B. : Mumtaz Okeefe RN, confirmed on 05/03/2024 20:52:10 (ET) that the healthcare facility has received the radiology report. Electronically Signed: Tarik MonsalveLayton IrmaDO danielle at 20:33 EDT , Brain MRI 05/04/24 22:04 IMPRESSION: 1. Moderate size acute infarct of the anterior posterior aspect of the right parietal lobe inferiorly extending to the junction with the occipital lobe. There is also mild extension into the superior and posterior aspect of the right parietal lobe. 2. Numerous additional tiny cortical infarcts are present in the superior regions of the bilateral frontal and parietal lobes, right greater than left, consistent with embolic phenomenon. No intracranial hemorrhage is present. Electronically Signed: Josué Mcdonnell MD at 10:30 EDT , ADDENDUM: 05/04/24 1051 IMPRESSION: 1. Moderate size acute infarct of the anterior posterior aspect of the right parietal lobe inferiorly extending to the junction with the occipital lobe. There is also mild extension into the superior and posterior aspect of the right parietal lobe. 2. Numerous additional tiny cortical infarcts are present in the superior regions of the bilateral frontal and parietal lobes, right greater than left, consistent with embolic phenomenon. No intracranial hemorrhage is present. N.B. : The above Results were Read Back by Josué Mcdonnell MD to Maru Suárez RN, and understanding confirmed on 05/04/2024 10:44:35 (ET). Electronically Signed: Josué Mcdonnell MD at 10:30 EDT Reading Location ID and State: [facility] / [place] , Service support , Active Medications Active Medications Active Medications: Current Medications Generic Name Dose Route Start Last Admin Trade Name Freq PRN Reason Stop Dose Admin Acetaminophen 650 mg 05/02/24 22:04 05/03/24 09:36 Acetaminophen 325 Mg Tablet PO 650 mg Q4H PRN PRN Administration Fever, pain Acetaminophen 500 mg 05/04/24 08:04 05/04/24 16:16 Acetaminophen 500 Mg Tablet PO Not Given Q8 LIZA Al Hydrox/Mg Hydrox/Simethicone 30 ml 05/02/24 22:04 Mag /Aluminum/Simeth Wch Udc 30 Ml Oral.Susp PO Q6H PRN PRN Gastric Burning Albuterol Sulfate 2.5 mg 05/02/24 22:04 Albuterol 2.5 Mg/3 Ml Vial.Neb. INHALATION Q2H PRN PRN Dyspnea, wheezing Atorvastatin Calcium 80 mg 05/02/24 22:04 05/03/24 21:13 Atorvastatin Calcium 80 Mg Tablet PO 80 mg QHS LIZA Administration Enoxaparin Sodium 40 mg 05/04/24 13:30 05/04/24 17:11 Enoxaparin 40 Mg/0.4 Ml Syringe SC 40 mg DAILY@0600 LIZA Administration Guaifenesin 10 ml 05/02/24 22:04 Guaifenesin 10 Ml Udc (200mg/10ml) PO Q4H PRN PRN COUGH Sodium Chloride 250 mls @ 15 mls/hr 05/02/24 23:26 IV .[id number] PRN Additional IVPB Infusion Sodium Chloride 250 mls @ 15 mls/hr 05/02/24 23:26 IV .[id number] PRN Saline Flush Melatonin 3 mg 05/02/24 22:04 Melatonin 3 Mg Tablet PO QHS PRN PRN INSOMNIA Ondansetron HCl 4 mg 05/02/24 22:04 Ondansetron 4 Mg/2 Ml Vial IV Q8H PRN PRN NAUSEA/VOMITING Pantoprazole Sodium 40 mg 05/04/24 11:50 05/04/24 12:43 Pantoprazole Sodium 40 Mg Tablet PO 40 mg DAILY LIZA Administration Prochlorperazine Edisylate 5 mg 05/02/24 22:04 Prochlorperazine 10 Mg/2 Ml Vial IV Q4H PRN PRN Breakthrough Nausea/Vomiting Senna/Docusate Sodium 2 tablet 05/02/24 22:04 Senna/Docusate Sodium 1 Tablet PO BID PRN PRN Constipation Sodium Chloride 10 - 40 ml 05/02/24 23:26 05/04/24 08:23 0.9% Saline Lock 10 Ml Syringe IV 10 ml UD PRN Administration SALINE FLUSH
[2024-05-04] MEDS: Atorvastatin Calcium 80 MG Tablet PO (19:59)
--- NOTE | 2024-05-04 22:04 | MRI_ITS ---
We are attempting to reach an attending provider to discuss findings. An addendum with communication details will be sent when the communication is complete. STUDY: MRI BRAIN WITHOUT CONTRAST REASON FOR EXAM: Male, 54 years old. Acute CVA 24hrs after Tenecteplase administration TECHNIQUE: Standardized multiplanar fat and water weighted pulse sequences were obtained. COMPARISON: Head CT dated May 03, 2024. FINDINGS: Moderate size acute infarct of the anterior posterior aspect of the right parietal lobe inferiorly extending to the junction with the occipital lobe. There is also mild extension into the superior and posterior aspect of the right parietal lobe. Numerous additional tiny cortical infarcts are present in the superior regions of the bilateral frontal and parietal lobes, right greater than left, consistent with embolic phenomenon. No intracranial hemorrhage is present. Normal size of the ventricles and extra-axial spaces for the patient''s age. There are multiple white matter hyperintensities, distributed throughout the deep white matter tracts of the cerebral hemispheres, consistent with moderate chronic white matter ischemic changes. There are no demyelinating plagues of the supratentorial brain, brainstem or cerebellum. There are no findings suspicious for multiple sclerosis (MS). Normal bilateral basal ganglia. Normal thalami. There is no extra-axial fluid accumulation. Normal flow voids within the major intracranial circulation suggesting patency by spin echo criteria. Normal sella turcica, pituitary gland, infundibular stalk, optic chiasm and hypothalamus. Normal tectal plate and pineal gland. Normal midbrain, ajay and medulla. Normal cerebellum. Normal basal cisterns. Normal bilateral temporal bones. Normal bilateral internal auditory canals. No demonstrated orbital abnormality, within the constraints of a routine brain study. Normal visualized paranasal sinuses. Normal calvarium and skull base. Normal visualized soft tissue structures. Normal visualized upper cervical spine. MRI/Brain without Contrast IMPRESSION: 1. Moderate size acute infarct of the anterior posterior aspect of the right parietal lobe inferiorly extending to the junction with the occipital lobe. There is also mild extension into the superior and posterior aspect of the right parietal lobe. 2. Numerous additional tiny cortical infarcts are present in the superior regions of the bilateral frontal and parietal lobes, right greater than left, consistent with embolic phenomenon. No intracranial hemorrhage is present. Electronically Signed: Josué Mcdonnell MD at 10:30 EDT ,
[2024-05-05 00:41] VITALS: BMI 27.8
[2024-05-05 04:00] VITALS: BP 107/73; PULSE 72; RESP 19; TEMP 36.6; O2SAT 98
[2024-05-05] MEDS: Enoxaparin 40 MG/0.4 ML Syringe SC (06:49)
--- NOTE | 2024-05-05 07:49 | PCM.PN.HOSP ---
Reason for Visit Reason for Visit: Diagnoses Homonymous bilateral field defects, left side (05/02/24) Elevated blood-pressure reading, without diagnosis of hypertension (05/02/24) Other specified abnormal findings of blood chemistry (05/02/24) Personal history of other venous thrombosis and embolism (05/02/24) Objective Data Objective Data Vital Signs: Vital Signs Temp Pulse Resp BP Pulse Ox O2 Del Method 36.6 C 72 19 H 107/73 98 Room Air 05/05/24 04:00 05/05/24 04:00 05/05/24 04:00 05/05/24 04:00 05/05/24 04:00 05/05/24 04:00 Oxygen Delivery Method Room Air Weight: 80.5 kg Body Mass Index (BMI) 27.8 Intake & Output: Intake and Output for Last 24 Hours 05/03/24 05/04/24 05/05/24 23:59 23:59 23:59 Intake Total 2050 / 2050 850 / 850 175 / 175 Output Total 3900 / 3900 1750 / 1750 400 / 400 Balance -1850 / -1850 -900 / -900 -225 / -225 Lab / Micro Data 05/04/24 04:10 05/04/24 04:10 Micro: Microbiology 05/03/24 00:15 Mucosa - Nasopharyngeal Respiratory Panel (PCR) - Final Radiography Diagnostic Testing: Radiology Impression Brain MRI 05/04/24 22:04 IMPRESSION: 1. Moderate size acute infarct of the anterior posterior aspect of the right parietal lobe inferiorly extending to the junction with the occipital lobe. There is also mild extension into the superior and posterior aspect of the right parietal lobe. 2. Numerous additional tiny cortical infarcts are present in the superior regions of the bilateral frontal and parietal lobes, right greater than left, consistent with embolic phenomenon. No intracranial hemorrhage is present. Electronically Signed: Josué Mcdonnell MD at 10:30 EDT , ADDENDUM: 05/04/24 1051 IMPRESSION: 1. Moderate size acute infarct of the anterior posterior aspect of the right parietal lobe inferiorly extending to the junction with the occipital lobe. There is also mild extension into the superior and posterior aspect of the right parietal lobe. 2. Numerous additional tiny cortical infarcts are present in the superior regions of the bilateral frontal and parietal lobes, right greater than left, consistent with embolic phenomenon. No intracranial hemorrhage is present. N.B. : The above Results were Read Back by Josué Mcdonnell MD to Maru Suárez RN, and understanding confirmed on 05/04/2024 10:44:35 (ET). Electronically Signed: Josué Mcdonnell MD at 10:30 EDT , Rhythm Strip Rhythm Strip: Sinus Rhythm Rate: 80 Ectopy: PAC(s) and - (No atrial fib documented.) Assessment & Plan Assessment/Plan (1) Left homonymous hemianopsia: PLAN: Plan Acute CVA sp TNK on 05/02 MRI brain shows moderate-sized acute infarct of the anterior posterior aspect of the right parietal lobe extending into the junction with the occipital lobe. Echo shows an EF of 60%. Hypercoagulable workup ordered. NSTEMI troponins peaked at 2437 echo: EF 60%. cards saw. Plan to follow-up as outpatient as needed. 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 Discussed with neurology, they are recommending holding off on anticoagulation at this time until we get further imaging with CAT scan and MRI. 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 Patient documented as having been on apixaban for this but self discontinued because it was felt the medication was not needed. Patient to start apixaban and about 48 hours. Patient will need to follow-up with hematology for further evaluation of this potentially hypercoagulable state. Chronic conditions: Tobacco Abuse: Encouraged cessation DVT prophylaxis: SCDs, defer chemoprophylaxis given tenecteplase usage. Full Code
[2024-05-05] MEDS: Pantoprazole Sodium 40 MG Tablet PO (09:29)
--- NOTE | 2024-05-05 10:05 | NURSING ---
pt discharge AMA
--- NOTE | 2024-05-05 15:43 | DS.PCM_ITS ---
Providers Date of Admission: 05/02/24 Primary Care Physician: Izzy Alcantara Consultations 05/02/24 20:21 Consult: [employer] / Pulmonary Medicine Routine Consulting Provider: Pulmonary Medicine stephen Hansen Reason for Consult: stroke for thrombolytic administration EMERGENT Consult: Yes Notified: No Date Notified: 05/02/24 Time Notified: 20:21 Comments:: Consult may be done in ED or ICU 05/02/24 22:04 Consult: Tele-Neurology Routine Consulting Provider: [facility] Reason for Consult: Acute Stroke Post Tenecteplase administration EMERGENT Consult: Yes Notified: Yes Date Notified: 05/02/24 Time Notified: 20:47 Method of Notification: ED Physician Initiated Nursing Unit Staff Notify [facility] of Tele-Neurology Consult: Yes Reason For Visit: CVA S/P TNK NSTEMI Diagnosis Discharge Diagnosis (1) Left homonymous hemianopsia: Status: Acute Code(s): H53.462 - Homonymous bilateral field defects, left side Plan Acute CVA * sp TNK on 05/02 * MRI brain shows moderate-sized acute infarct of the anterior posterior aspect of the right parietal lobe extending into the junction with the occipital lobe. * Echo shows an EF of 60%. * Hypercoagulable workup ordered. NSTEMI * troponins peaked at 2437 * echo: EF 60%. * cards saw. Plan to follow-up as outpatient as needed. 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 Discussed with neurology, they are recommending holding off on anticoagulation at this time until we get further imaging with CAT scan and MRI. 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 Patient documented as having been on apixaban for this but self discontinued because it was felt the medication was not needed. * Patient to start apixaban and about 48 hours. Patient will need to follow-up with hematology for further evaluation of this potentially hypercoagulable state. Chronic conditions: * Tobacco Abuse: Encouraged cessation DVT prophylaxis: SCDs, defer chemoprophylaxis given tenecteplase usage. Full Code Medications at Discharge Home Medications acetaminophen 650 mg tablet,extended release (Tylenol 8 Hour) 650 mg PO Q12H 08/08/22 apixaban 5 mg (74 tabs) tablets in a dose pack 5 mg PO BID #74 tabs 05/05/24 atorvastatin 80 mg tablet 80 mg PO QHS #30 tabs 05/05/24 Hospital Course Summary of Care Provided Hospital Course: Patient presented with visual field deficits with left lateral as well as some confusion. Imaging showed moderate-sized acute infarct in the anterior posterior aspect of the right parietal lobe extending into the occipital lobe. Patient was also found to have lower extremity DVTs. Previously, the patient did have DVTs and had been on apixaban but voluntarily discontinued because he felt it was not helping him. Patient was seen by neurology and they do recommend that he go back on anticoagulation but to hold off at least 1 more day before resuming that. Today, the patient left AGAINST MEDICAL ADVICE, before being seen. Prescription resent to the pharmacy that was listed and and there is discharge instructions which patient did not receive but is available if he does come back. Weight / BMI Weight Weight: 80.5 kg Body Mass Index (BMI) 27.8 ABG / Lab / Microbiology Data 05/04/24 04:10 05/04/24 04:10 Microbiology: Microbiology 05/03/24 00:15 Mucosa - Nasopharyngeal Respiratory Panel (PCR) - Final Meaningful Use Info Meaningful Use Meaningful Use Diagnoses (Choose all that apply): Ischemic CVA CVA Therapy Assessed for PT,OT and/or ST?: Yes Ischemic Stroke Antithrombotic order at d/c?: Yes Dx of Atrial fib/flutter?: No Statin Dosing Therapy Reference: STATIN DOSE THERAPY REFERENCE: * Patients > 75 years receive moderate or high dose statin therapy. * Patients 75 years or YOUNGER should receive HIGH intensity statin dose unless contraindicated. You will be required to document reason for non-treatment if statin daily dose does not meet guidelines. HIGH DOSE STATIN THERAPY DAILY Atorvastatin > than or = to 40 mg Rosuvastatin > than or = to 20 mg Amlodipine + Atorvastatin > than or = to 2.5/40 mg Ezetimibe + Simvastatin 10/80 mg Simvastatin 80mg Statins at discharge?: Yes If patient is 75 or younger, pt will be discharged on HIGH intensity statin.: Y es Primary Dx Acute Ischemic CVA?: Yes Discharge Plan Admission Admit Date/Time: 05/02/24 20:44 Primary Reason for Your Visit: CVA Attending Provider: Capo Burris Primary Care Provider: Leda Alcantara Consulting Providers: Irina Couch; Jimmie Daniels; Newton Trejo; Carmina Chand; Meghan Peterson; Maria Luisa Ram; Rafael Mcdermott; Vicenta Avila; [place]; Christian Ramesh; Connor Berger; Marnie Pryor; Roger Gee; Giovanna Zee; Martha Hartman; Silvana Louis; Regino Lyons; Zev Ho; Berhane Beckham; Tia Huber; Marychuy Stanley Discharge Orders/Prescriptions Prescriptions: New apixaban 5 mg (74 tabs) tablets,dose pack 5 mg PO BID Qty: 74 0RF Rx Instructions: 2 tabs twice daily for 7 days, then 1 tab twice daily. Start on 05/06. atorvastatin 80 mg tablet 80 mg PO QHS Qty: 30 0RF Continued acetaminophen [Tylenol 8 Hour] 650 mg tablet extended release 650 mg PO Q12H Discontinued cholecalciferol (vitamin D3) 50 mcg (2,000 unit) capsule 50 mcg PO DAILY Patient Comments: take 1 capsule by mouth once daily Eliquis 5 mg tablet 5 mg PO BID Referrals / Follow Up: Leda Alcantara [Primary Care Provider] - Within 2 Weeks [facility] [Provider Group] - Within 3 Months Disposition Disposition (needs filled in before D/C Order can be placed): Against Medical Advice
[2024-05-14 16:11] LABS: Anti-Cardiolipin Ab, IgG, Qn < 9 GPL U/mL (0-14); Anti-Cardiolipin Ab, IgM, Qn < 9 MPL U/mL (0-12); Anti-Thrombin 3 AG, Immunol 94 % (72-124); Antithrombin 3 Function 112 % (75-135); Beta-2-Glycoprotein I IgA <9 (0-25); Beta-2-Glycoprotein I IgG <9 (0-20); Beta-2-Glycoprotein I IgM <9 (0-32); Protein C Antigen 109 % (60-150); Protein C, Functional 131 % (73-180)
== END 2024-05-05 10:00 | disposition left against medical advice (07) | DRG 61 ==
LOC: ED 21:01 → ICU 21:04
PROVIDERS: Admitting Provider Family Medicine; Emergency Provider Emergency Medicine
DX: I63.9 Cerebral infarction, unspecified (principal); I21.4 Non-ST elevation (NSTEMI) myocardial infarction; I82.403 Acute embolism and thrombosis of unspecified deep veins of lower extremity, bilateral; I24.89 Other forms of acute ischemic heart disease; D53.9 Nutritional anemia, unspecified; H53.462 Homonymous bilateral field defects, left side; F12.90 Cannabis use, unspecified, uncomplicated; F17.210 Nicotine dependence, cigarettes, uncomplicated; R29.702 NIHSS score 2; Z86.718 Personal history of other venous thrombosis and embolism; Z82.3 Family history of stroke; Z53.29 Procedure and treatment not carried out because of patient's decision for other reasons
CPT/HCPCS: 51702; 70450; 70496; 70498; 70551; 71045; 80048; 80053; 80061; 80307; 81240; 81241; 82607; 82728; 82746; 82962; 83036; 83540; 83550; 83735; 84100; 84443; 84484; 85025; 85300; 85301; 85302; 85303; 85610; 85730; 86146; 86147; 87633; 92523; 93005; 93306; 93970; 94762; 97129; 97130; 97162; 97166; 97802; 99285; 99406; J3101; J7030; Q9967; A4216; J3490

== ENCOUNTER 2024-08-28 10:57 | Emergency (ER) | payer MEDICARE, MEDICAID, SELFPAY ==
[2024-08-28 11:03] VITALS: BP 130/79; PULSE 101; RESP 18; TEMP 36.6; O2SAT 97; BMI 24.7
--- NOTE | 2024-08-28 11:59 | EKG12_ITS ---
Test Reason : Blood Pressure : */* mmHG Vent. Rate : 102 BPM Atrial Rate : 102 BPM P-R Int : 154 ms QRS Dur : 84 ms QT Int : 360 ms P-R-T Axes : 73 74 76 degrees QTcB Int : 469 ms Sinus tachycardia Otherwise normal ECG Confirmed by MANDO HENAO, ANKITA ([id number]), associate editor MALICK MEEYR ([id number]) on 08/30/2024 10:49:43 A M Referred By: Confirmed By: ANKITA GILMORE MD
--- NOTE | 2024-08-28 11:59 | CT_ITS ---
ACR Level 3 findings have been noted. An addendum which confirms receipt of the report will follow. EXAM: CT HEAD WITHOUT INTRAVENOUS CONTRAST CLINICAL INDICATION: history of stroke TECHNIQUE: Multiple axial images were obtained of the head without intravenous contrast. CTDIvol = ( 44.99 ) mGy, DLP = ( 812.98 ) mGycm This CT exam was performed using one or more of the following dose reduction techniques: automated exposure control, adjustment of the mA and/or kV according to patient size, and/or use of iterative reconstruction technique. COMPARISON: 05/04/2024 FINDINGS: BRAIN AND EXTRA-AXIAL SPACES: Since prior examination, infarcts are now seen at the right frontoparietal region and right temporal occipital region which now appear to be chronic given hypodensity and encephalomalacia. New area of edema involving the left occipital region is concerning for acute or subacute infarct. Additional small focal low-density area at the posterior aspect of the left basal ganglia also. Cannot exclude acute infarct in this area. Chronic ischemic small vessel matter disease and diffuse parenchymal atrophy. No intra- or extra-axial hemorrhage. Posterior fossa structures are unremarkable. Basal cisterns are patent. No midline shift or hydrocephalus. BONES/JOINTS: Unremarkable. No discrete lytic or blastic abnormalities. SINUSES: Unremarkable as visualized. Clear. MASTOID AIR CELLS: Unremarkable. Clear. ORBITS: Visualized globes, extraocular muscles, optic nerves and retrobulbar fat appear unremarkable. CT/Brain/Head without Contrast IMPRESSION: 1. New area of edema involving the left occipital region is concerning for acute or subacute infarct. Suggest MRI for further investigation. Electronically Signed: Deshawn Dickey MD at 13:52 EST ,
[2024-08-28 12:01] LABS: Bedside Glucose 81 mg/dL (74-106)
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
[2024-08-28] MEDS: 0.9% Normal Saline (1000mL) 1,000 ML 999 ML IV (12:08)
--- NOTE | 2024-08-28 12:14 | RAD_ITS ---
EXAM: XR CHEST, 1 VIEW CLINICAL INDICATION: cough TECHNIQUE: Frontal view of the chest. COMPARISON: 05/02/24. FINDINGS: LUNGS AND PLEURAL SPACES: New mass measuring 3.2 x 3.1 cm at the right middle lobe peripherally just beneath/abutting the right minor fissure. No pneumothorax. No effusion. No hilar enlargement. HEART: Unremarkable. Cardiac silhouette not enlarged. MEDIASTINUM: Central airways and mediastinal contour are unremarkable. BONES/JOINTS: Unremarkable. No acute fracture. SOFT TISSUES: Unremarkable. RAD/Chest 1 View (Portable) IMPRESSION: 1. New right middle lobe mass concerning for tumor. 2. Recommend nonurgent chest CT. Electronically Signed: Deshawn Dickey MD at 13:26 EST ,
[2024-08-28] MEDS: LORazepam 2 MG/ML Syringe 1 MG IV (12:19)
[2024-08-28 12:20] LABS: Absolute Lymphocyte Count 0.91 X10^3/uL (0.83-4.51); Absolute Neutrophil Count 7.1 X10^3/uL (2.0-7.7); Basophil# 0.05 X10^3/uL; Basophil% 0.6 % (0-1); Eosinophil# 0.19 X10^3/uL; Eosinophils% 2.1 % (0-5); Hematocrit 22.6 % (40-54); Lymphocyte # 0.91 X10^3/ul (0.83-4.51); Lymphocyte % 10.1 % (19-41); Mean Corpuscular Hgb 30.6 pg (27.0-32.0); Mean Corpuscular Volume 98.7 fL (80-94); Monocyte# 0.72 X10^3/uL; NRBC Flagged by Analyzer 0 % (0-5); Neutrophil # 7.08 X10^3/uL (2.7-7.7); Neutrophil % 78.6 % (47-70); POSITIVE COUNT YES; Platelet Count 14 K/mm3 (150-450); RBC Distribution Width CV 17.3 % (11.6-14.6); RBC Distribution Width SD 62.2 fl (35.1-43.9); Red Blood Count 2.29 M/mm3 (4.6-6.2)
[2024-08-28 12:35] LABS: AST(SGOT) 19 U/L (15-37); Alanine Aminotransfer ALT/SGPT 13 U/L (16-61); Albumin, Serum 3.2 g/dL (3.2-5.0); Alkaline Phosphatase 106 U/L (45-117); Anion Gap 8 (5-15); BUN 12 mg/dL (7-18); BUN/Creat Ratio 10.6 RATIO (10-20); Calcium,Total 8.6 mg/dL (8.5-10.1); Chloride 108 mmol/L (98-107); Creatinine, Serum 1.13 mg/dL (0.70-1.30); EST Glomerular Filtration Rate 71 mL/min (>60); Est Glom Filt Rate - Afr Amer 86 mL/min (>60); Estimated Creatinine Clearance 68.24 ml/min; Globulin 3.2 g/dL (2.2-4.2); Glucose 100 mg/dL (74-106); Lipase 17 U/L (13-75); Protein, Total 6.4 g/dL (6.4-8.2); Sodium Level 136 mmol/L (136-145); Troponin-I HS 778 pg/mL (3.0-78.0)
[2024-08-28 12:38] LABS: Lactic Acid 1.3 mmol/L (0.4-1.9)
[2024-08-28 12:53] LABS: Differential Indicated SCAN CRITERIA MET
[2024-08-28 12:54] LABS: Anisocytosis 2+; Platelet Estimate MKD DEC (ADEQ)
[2024-08-28 13:34] LABS: Bacteria 0 SEEN /hpf (None Seen); Mucous, Urine 0 SEEN /hpf (<or=2+); Squamous Epithelial Cells - UA 0 SEEN /hpf (0-5)
[2024-08-28 13:35] VITALS: BP 131/78; PULSE 97; RESP 22; TEMP 36.9; O2SAT 96
[2024-08-28 13:41] LABS: Color, Urine Red (Yellow); Glucose, Dipstick Normal (Normal); Ketone-Dipstick 5 mg/dl (Negative); Leukocyte Esterase-Dipstick 100 /ul (Negative); Nitrite-Dipstick Negative (Negative); Occult Blood-Urine 250 /ul (Negative); Protein-Dipstick 500 mg/dl (Negative); Specific Gravity, Urine 1.015 (1.002-1.030); Urine Bilirubin Dipstick Negative (Negative); Urine Clarity Turbid (Clear); Urine Urobilinogen Normal (Normal); Urine pH 6.5 (5.0 - 8.0)
[2024-08-28 13:48] LABS: Red Blood Cells-Urine > 100 SEEN /hpf (0-5)
[2024-08-28 13:49] LABS: White Blood Cells >100 SEEN /hpf (0-5)
[2024-08-28 14:12] VITALS: BP 105/77; PULSE 99; RESP 24; O2SAT 100
--- NOTE | 2024-08-28 14:13 | ED.RN ---
was previously alert to self, place on arrival. has increased lethargy now. will awaken to voice but not answering questions appropriately.
[2024-08-28 14:25] LABS: Amphetamine Urine POSITIVE (<1000 ng/mL); Barbiturate Urine VISTA NEGATIVE (< 200 ng/mL); Benzodiazepine Urine VISTA NEGATIVE (< 200 ng/mL); Cocaine Urine VISTA NEGATIVE (< 300 ng/mL); Ecstacy Urine VISTA NEGATIVE (< 500 ng/mL); Methadone Urine VISTA NEGATIVE (< 300 ng/mL); PCP Urine VISTA NEGATIVE (< 25 ng/mL); THC Urine VISTA NEGATIVE (< 50 ng/mL); Vista UDS pH Range 5
[2024-08-28 14:57] LABS: Troponin-I HS 759 pg/mL (3.0-78.0)
--- NOTE | 2024-08-28 15:21 | ED.RN ---
ACCEPTED AT [facility] @ 1500 JUST WAITING ON A BED
[2024-08-28 19:00] VITALS: BP 144/110; PULSE 108; RESP 31; O2SAT 98
[2024-08-28 20:50] VITALS: BP 122/99; PULSE 110; RESP 24; TEMP 36.9; O2SAT 96
[2024-08-30 16:01] LABS: Pathologist Review Reviewed
== END 2024-08-28 21:03 | disposition short-term general hospital (02) ==
PROVIDERS: Nurse Practitioner; Emergency Provider Emergency Medicine; Visit Provider Emergency Medicine
DX: I63.9 Cerebral infarction, unspecified (principal); D69.6 Thrombocytopenia, unspecified; R91.8 Other nonspecific abnormal finding of lung field; R31.9 Hematuria, unspecified; F17.210 Nicotine dependence, cigarettes, uncomplicated; D64.9 Anemia, unspecified; Z79.899 Other long term (current) drug therapy; Z79.01 Long term (current) use of anticoagulants